=== PATIENT | female | born 1990 | race Caucasian/White ===

== ENCOUNTER 2019-05-08 00:39 | Outpatient (CLI) | payer OTHER, SELFPAY ==
--- NOTE | 2019-05-08 10:57 | DI.US_ITS ---
SYMPTOMS/DIAGNOSIS: TO FOLLOW RT BREAST MASS, N63.10 RIGHT BREAST ULTRASOUND: Right breast ultrasound was performed and is compared with previous ultrasound of 08/26/17. The previous examination showed two mildly lobulated right breast masses which were of intermediate echogenicity, the larger measured 21 x 21 x 12 mm and the smaller measured 9 4 x 6 mm. On today's examination the larger which is in the 10:00 o'clock position 3 cm from the nipple measures 34 x 17 x 30 mm and the previously noted lesion also in the 10:00 o'clock position measures 8 x 4 x 7 mm and is unchanged from the previous exam. There is a new 6 mm in diameter similar appearing solid nodule also in the 10:00 o'clock position. This has well circumscribed margins, as do the other lesions. CONCLUSION: Interval increase in size of the largest right breast lesion, previously thought to have appearance consistent with fibroadenoma. Apart from the increase in size there has been no significant interval change in appearance of the lesion.
== END 2019-05-08 00:59 ==
PROVIDERS: PCP Family Medicine; Visit Provider Nurse Practitioner Family
DX: N63.11 Unspecified lump in the right breast, upper outer quadrant (principal); D24.1 Benign neoplasm of right breast
CPT/HCPCS: 76642

== ENCOUNTER 2019-10-05 15:50 | Outpatient (REF) | payer OTHER, SELFPAY ==
--- NOTE | 2019-10-05 13:30 | PAPFT_PTH ---
PATIENT: Ruth Garcia LOC: [facility] U#:[id number] AGE/SX: 29/F ROOM: RE10/05/[address]: CARIDAD Reddy : 1990 BED: DIS: 10/05/2019 SPEC #: [id number] RECD: 10/05/19 17:10 STATUS: MARCI RERani #: [id number] FABIO: 10/05/19 13:[address]: Flori Doimnguez DEPT: [facility] Cytology RECD BY: Lelo Morejon ENTERED: 10/05/19 17:10 SP TYPE: PAPFT OTHR DR: Soo Kaur Tissues: 1 - CX/ENDOCX FOR PAP SMEARS Procedures: PAP THIN PREP/UVM Screening HPV DNA PROBE Comments: [id number]
== END 2019-10-05 16:10 ==
LOC: LBN 15:50
PROVIDERS: PCP Family Medicine; Visit Provider Nurse Practitioner Family
DX: Z12.4 Encounter for screening for malignant neoplasm of cervix (principal); Z11.51 Encounter for screening for human papillomavirus (HPV)
CPT/HCPCS: 88142; 87624

== ENCOUNTER 2020-04-29 06:21 | Day surgery (SDC) | payer OTHER, SELFPAY ==
[2020-04-29 06:33] VITALS: BP 115/73; PULSE 73; RESP 18; TEMP 36.9; O2SAT 100
[2020-04-29 06:51] LABS: HCT 39.4 % (36.0-46.0); HGB 12.8 g/dL (11.2-15.7); MCH 28.3 pg (27.0-33.0); MCHC 32.5 % (32.0-36.0); MPV 9.9 fL (8.0-11.0); Platelet Count 302 10^3/uL (130-400); RBC 4.53 10^6/uL (3.93-5.22); RDW 12.7 % (11.7-14.6); RDW-SD 40.6 fL; WBC 6.11 10^3/uL (4.4-10.8)
[2020-04-29] MEDS: Lactated Ringers 1,000 ML 125 ML IV (07:06)
[2020-04-29] MEDS: Bupivacaine 0.25% Pres-Free 30 ML VIAL (07:50)
--- NOTE | 2020-04-29 07:50 | POCSPONT_PTH ---
PATIENT: Ruth Garcia LOC: [facility] U#:[id number] AGE/SX: 29/F ROOM: RE04/29/[address]: Edita Emerson : 1990 BED: DIS: 04/29/2020 SPEC #: [id number] RECD: 04/29/20 12:45 STATUS: ROCKZeina REQ #: [id number] FABIO: 04/29/20 07:[address]: Edita Emerson DEPT: Surgical Specimen RECD BY: Lelo Morejon ENTERED: 04/29/20 12:46 SP TYPE: POCSPONT TAMARA DR: Soo Kaur Tissues: 1 - ,SPONTANEOUS CHROMOSOME ANALYSIS PROFILE Procedures: GROSS AND MICRO LEVEL 4 IMMUNOPEROXIDASE STAIN CHROMOSOME ANALYSIS 15-20 CELLS CHROMOSOME ANALYSIS TISSUE CULTURE Comments: [id number] (CYTOGENETICS - [id number])
--- NOTE | 2020-04-29 08:05 | W.PM.DSUDISC ---
Discharge Plan Disposition Patient Disposition: HOME Condition: Fair Discharge Details Reason For Visit: rishabh. Attending Provider: Edita Emerson Primary Care Provider: Soo Kaur Home Meds and New Rx's Prescriptions: No Action cephalexin [Keflex] 500 mg capsule 500 mg PO BID RF: 0 PNV cmb#95-ferrous fumarate-FA [] 1 EACH tablet 1 ea PO DAILY RF: 0 levothyroxine [Synthroid] 25 mcg tablet 50 mcg PO DAILY RF: 0 Discharge Instructions Additional Instructions: 05/16/20 @ 10:[address] Emerson to review pathology results. Stand Alone Forms: [facility] Post Suction D+C Activity:: Activity as Tolerated Diet:: As Tolerated DS: Diagnosis Discharge Diagnosis (1) Missed : Status: Acute
[2020-04-29 08:37] VITALS: BP 117/74; PULSE 53; RESP 16; TEMP 36.2; O2SAT 100
--- NOTE | 2020-04-29 08:46 | W.PM.OP ---
Date of service: 04/29/20 Time of Service: 08:46 Operative Note Operative Note DATE OF PROCEDURE: 04/29/20 PRE-OP DIAGNOSIS: Missed at 6 weeks 4 days estimated gestational age POST-OP DIAGNOSIS: same PROCEDURE: Cervical dilatation and suction evacuation of uterine contents SURGEON: Edita Emerson ANESTHESIA: MAC ESTIMATED BLOOD LOSS: 5 PATHOLOGY: other (Gross pathology and chromosome analysis on process of conception) COMPLICATIONS: None Patient was transported to: same day Patient's condition: stable Indications: 29 due to P0 female with a documented embryonic demise at the time of a OB ultrasound on 02/26/2020 who requested definitive therapy and declined expectant management for missed AB. Findings: Uterus small mobile sounded to 6 cm. Small amount of tissue obtained. Procedure Description: Patient was taken to the operating room where she was placed in the dorsal supine position and monitored anesthesia care was administered without difficulty. She was then placed in the dorsolithotomy position in yellowfin stirrups prepped and draped in the usual sterile fashion. Surgical timeout was performed and SCDs were in place. [place] speculum was placed in the vagina and the anterior lip of the cervix was infiltrated with 1 cc of quarter percent Marcaine with out epinephrine and grasped with a single-tooth tenaculum. A paracervical block was performed at the 4 and 8:00 cervical vaginal interface respectively using quarter percent Marcaine without epinephrine. The cervix was sequentially dilated to a maximum of 17 Colin and a 7 mm curved suction cannula was placed into the uterus attached to suction and all 4 quadrants of the uterine cavity were sequentially suction curetted with small amount of proximal of conception returned. Suction cannula was removed a gentle curettage of the uterus was performed with a banjo curette with minimal tissue returned. Final insertion and suction of the uterine cavity was performed no tissue was returned. Instruments were removed with the patient's vagina tenaculum site was noted be hemostatic. She is placed in the dorsal supine position awakened from anesthesia and transported recovery area in stable condition all sponge lap needle counts were correct x2
== END 2020-04-29 09:05 | disposition home or self-care (01) ==
PROVIDERS: PCP Family Medicine; Visit Provider Obstetrics & Gynecology Gynecology
PROC: (CPT 59841; principal; 2020-04-29 07:30)
DX: O02.1 Missed abortion (principal)
CPT/HCPCS: 59820; 36415; 85027; 86850; 86900; 86901; 88305; 88230; 88233; 88262; 88361; J0131; J1885; J2001; J2250; J2405; J2704

== ENCOUNTER 2020-06-22 03:00 | Outpatient (CLI) | payer OTHER, SELFPAY ==
--- NOTE | 2020-06-22 06:45 | DI.US_ITS ---
EXAM: US SONOHYSTEROGRAM CLINICAL HISTORY: hx of 2 miscarriage,ASSESS UTERINE CAVITY FOR FILLING DEFECT,OO2.1,003.9. TECHNIQUE: Ultrasound was provided for Dr. Emerson during the performance of a sonohysterogram, us ing standard protocol. COMPARISON: CT ABD PELVIS WO CONTRAST from 01/21/2017 FINDINGS: UTERUS: Position: Anteverted. Size: 7.5 x 3.5 x 5 cm Endometrium: 9 millimeters. No polyp or other filling defect is seen. Myometrium: Unremarkable. Cervix: Small nabothian cyst. OVARIES: Right: 3.7 x 2.1 x 1.7 cm Cyst or mass: None. Left: 3.1 x 2.9 x 2.6 cm Cyst or mass: None. DOPPLER: Color: Symmetric and uniform flow to both ovaries. No hyperemia. CUL-DE-SAC: Free fluid: None. IMPRESSION: 1. Sonohysterogram was performed by Dr. Emerson. 2. Normal-appearing uterus with endometrial stripe within normal limits. 3. Unremarkable bilateral ovaries. DATA REPOSITORY:
== END 2020-06-22 03:20 ==
PROVIDERS: PCP Family Medicine; Visit Provider Obstetrics & Gynecology Gynecology
DX: Z87.59 Personal history of other complications of pregnancy, childbirth and the puerperium (principal); O02.1 Missed abortion; O03.9 Complete or unspecified spontaneous abortion without complication
CPT/HCPCS: 76831

== ENCOUNTER 2021-01-03 02:26 | Outpatient (CLI) | payer OTHER, SELFPAY ==
--- NOTE | 2021-01-03 | DI.US_ITS ---
EXAM: US OB 2-3 TRIMESTER W MOD CLINICAL HISTORY: HIGH RISK,O09.91. TECHNIQUE: Transabdominal obstetrical ultrasound performed. COMPARISON: No exams were available for comparison FINDINGS: Transabdominal obstetrical ultrasound performed. FINDINGS: Number of fetuses: One. position: Varied throughout the examination. heart rate: 144 bpm. Placental location: Anterior no evidence of previa. Amniotic fluid index: Amount of fluid is within normal limits. ANATOMICAL SURVEY: Neither the four-chamber heart nor the ventricular outflow tracts were visua lized sonographically. The palate was not seen sonographically. The bowel is mildly hyperechoic but less than the bone. There is a 2.7 mm left choroid plexus cyst. Otherwise, the anatomic surv ey is unremarkable. BIOMETRIC DATA: BPD: 4.9cm consistent with 20 weeks 6 days. HC: 18.2cm consistent with 20 weeks 4 days. AC: 14.9cm consistent with 20 weeks 1 day. FL: 3.4cm consistent with 20 weeks 3 days. Cisterna Magna: 2.6 mm Cerebellum: 1.98 cm EFW: 350 grms 92% Composite Age: 20 weeks 4 days EDC by US: 05/19/2021 Heart Rate: 144BPM IMPRESSION: 1. Single live intrauterine gestation as above. 2. Nonvisualization of the four-chamber heart, right and left ventricular outflow tracts and palate. The patient will return on 01/11/2021 in order to complete the survey. bowel will be re- evaluated at that time. 3. 2.7 mm left choroid plexus cyst. Follow-up is recommended. DATA REPOSITORY:
== END 2021-01-03 02:46 ==
PROVIDERS: PCP Family Medicine; Visit Provider Family Medicine
DX: O09.292 Supervision of pregnancy with other poor reproductive or obstetric history, second trimester (principal); Z3A.20 20 weeks gestation of pregnancy
CPT/HCPCS: 76805

== ENCOUNTER 2021-05-17 01:47 | Outpatient (CLI) | payer OTHER, SELFPAY ==
--- NOTE | 2021-05-17 09:00 | DI.US_ITS ---
Exam(s) US OB NALDO WEIGHT EXAM: US OB NALDO WEIGHT CLINICAL HISTORY: large for dates. ? over 5000gms, Z3A.01, Z34.93. TECHNIQUE: Transabdominal obstetrical ultrasound was performed. COMPARISON: US US OB F/U FACIAL/LVOT/RVOT from 01/12/2021 FINDINGS: There is a single viable intrauterine gestation with cardiac activity identified-144 bpm The fetus is presently in cephalic position . Amniotic fluid: There is a normal amount of amniotic fluid with an NALDO of 19.9cm. Placental location: The placenta is anterior grade 2,with no evidence of placenta previa. Dating parameters place this at approximately 42 weeks gestational age, implying POST DATES . (05/03/2021) BPD measures 42 WEEKS HC measures OVER 42 WEEKS AC measures 40 WEEKS FL measures OVER 42 WEEKS Estimated weight is 4638 gm-10 POUNDS, 4 OUNCES IMPRESSION:: Viable TERM/POSTDATES gestation, as described above. NORMAL AMOUNT OF AMNIOTIC FLUID. DATA REPOSITORY:
--- NOTE | 2021-05-25 10:53 | W.PM.OBHPL1 ---
OB-HPI Labor/Delivery History of Present Illness UHGO Calculator Estimated Delivery Date Method Current WG Current Estimate 05/27/21 LMP (Certain) 39w 5d Other Estimates 05/27/21 Ultrasound #1 39w 5d PFSH Medical History (Updated 05/16/21 @ 10:45 by Edita Emerson MD) History of frequent urinary tract infections (10/22/16) History of kidney stones (01/14/17) History of miscarriage 04/2020. Normal female karyotype on [facility]C specimen[facility] Perform lupus anticoagulant and anticardiolipin antibodies. Sonohysterogram to evaluate uterine cavity to be performed at [facility] Hypothyroidism, unspecified (10/28/17) Interstitial cystitis Missed 01/2020. ~7w EGA. D&C at 10w 04/27/20. Dx at 7w2d. Procedure 04/29/20. POC: Nl chromosome analysis. Surgical History Breast fibroadenoma Removed 05/27/2019 Dr Mariano Reece Hx of dilation and curettage 01/28/20 Family History Grandmother Thyroid disorder paternal Grandmother Thyroid disorder maternal Maternal Aunt Thyroid disorder paternal Maternal Aunt Thyroid disorder paternal Paternal Grandmother Breast cancer PGM at age 92 with Dx of Breast, Ovarian and Uterine cancer Ovarian cancer Uterine cancer Social History (Updated 04/28/20 @ 14:07 by Edita Emerson MD) Smoking/Tobacco Use Status: Never Smoking risk assessment performed?: Yes Alcohol Intake: never Drug use: Never Substance use type: does not use Household members: spouse and other Details: H-Jabari Number of Children: 0 Education Level: master's degree current occupation: [employer] Sexually active: Yes Do you feel safe at home: Yes Do you feel safe in your relationship?: Yes Female Reproductive History Menstrual control method: condoms History History 3 Para 2 Hx # Term Pregnancies Multiple births Hx # Pregnancies Ectopic pregnancies AB induced Hx Number of Living Children AB spontaneous 2 Meds Allergies and Home Medications Allergies Allergy/AdvReac Type Severity Reaction Status Date / Time pineapple AdvReac Intermediate RASH Verified 10/24/20 08:05 Home Medications Medication Instructions Recorded Confirmed Type PNV cmb#95-ferrous fumarate-FA 1 ea PO DAILY 10/12/13 05/25/21 History [ Vitamins Tablet] levothyroxine 25 mcg tablet 75 mcg PO DAILY tab 09/29/20 05/25/21 History levothyroxine [Synthroid] 75 mcg PO DAILY 05/25/21 05/25/21 History Exam Detailed Labor and Delivery Exam De Leon Score: Cervical Points Exam 0 1 2 3 Dilation Closed 1-2cm 3-4 cm 5-6cm Effacement 0-30% 40-50% 60-70% 80% Consistency Firm Medium Soft Station -3 -2 -1,0 +1,+2 Position Posterior Mid Anterior
== END 2021-05-17 02:07 ==
PROVIDERS: PCP Family Medicine; Visit Provider Obstetrics & Gynecology Gynecology
DX: Z34.93 Encounter for supervision of normal pregnancy, unspecified, third trimester (principal); Z3A.42 42 weeks gestation of pregnancy
CPT/HCPCS: 76816

== ENCOUNTER 2021-05-25 10:00 | Inpatient (IN) | payer OTHER, SELFPAY ==
[2021-05-25] VITALS (9 sets, daily range): BP systolic 103–132; BP diastolic 60–80; PULSE 78–95; RESP 14–18; TEMP 36.6–36.8
[2021-05-25] MEDS: miSOPROStol 25 MCG TAB (11:19)
[2021-05-25 13:05] LABS: Source Nasal/Nares
[2021-05-25 13:06] LABS: HCT 39.1 % (36.0-46.0); MCH 29.7 pg (27.0-33.0); MCHC 33.2 % (32.0-36.0); MCV 89.3 fL (80-95); MPV 10.4 fL (8.0-11.0); Platelet Count 198 10^3/uL (130-400); RBC 4.38 10^6/uL (3.93-5.22); RDW 13.8 % (11.7-14.6)
[2021-05-25 14:44] LABS: COVID-19 PCR Negative (Negative)
--- NOTE | 2021-05-25 16:11 | HPE_ITS ---
Date of service: 05/25/21 Time of Service: 11:00 Assessment and Plan Assessment and plan (1) Macrosomia: Status: Acute Assessment and plan: 30 yo at 39 5/7 weeks here for IOL for suspected macrosomia. Overall doing well with cat 1 FHT. Cervix extremely posterior and difficult to reach, unable to visualize with speculum. Suspected Bishops score of 0. - At risk for PPH due to expected prolonged IOL and uterine atony due to macrosomia and borderline polyhydramnios. - At risk for SD due to suspected macrosomia and maternal weight gain >50lbs. Of note, GDM testing negative. Plan: - misoprostol 25mcg vaginal given now, plan for total of 4 doses - attempted cook balloon placement but cervix too posterior to do successfully, could try again after one dose of miso depending on exam - anticipate pitocin early tomorrow morning (2) Encounter for induction of labor: Status: Acute Assessment and plan: As above (3) Hypothyroidism, unspecified: Status: Acute Assessment and plan: Continue home levothyroxine Qualifiers: Hypothyroidism type: other Qualified Code(s): E03.8 - Other specified hypothyroidism OB-HPI Labor/Delivery History of Present Illness Reason for Visit: Labor Induction Chief Complaint: Scheduled Induction of Labor Indication for Induction: Macrosomia. HUGO Calculator Estimated Delivery Date Method Current WG Current Estimate 05/27/21 LMP (Certain) 39w 5d Other Estimates 05/27/21 Ultrasound #1 39w 5d History of Present Narrative: Late entry, patient seen this morning starting at 10:30am. 30 yo , A+, ab neg, RI, GBS neg woman who presents at 39 5/7 weeks for IOL for suspected macrosomia. Also with borderline polyhydramnios on her last US with single deepest pocket of >9.3 but NALDO was 19.9cm. Medical history notable for hypothyroidism, TSH in February wnl. history notable as above for suspected macrosomia with estimated weight of 4638 gm-10 POUNDS, 4 OUNCES on 05/17/21, as well as over 50lb weight gain. Reports feeling well. No vaginal bleeding or leakage of fluid, good movement, does have occasional mild contractions. Had headaches earlier this week but none the last couple days. Has had swelling of hands and feet for last few weeks, worse today. No epigastric discomfort, vision changes. Review of Systems All systems reviewed & are unremarkable except as noted in HPI and below PFS Medical History (Updated 05/25/21 @ 16:35 by India Camacho) History of frequent urinary tract infections (10/22/16) History of kidney stones (01/14/17) History of miscarriage 04/2020. Normal female karyotype on D&C specimen. 05/2020 [facility] consult: Perform lupus anticoagulant and anticardiolipin antibodies. Sonohysterogram to evaluate uterine cavity to be performed at [facility] Hypothyroidism, unspecified (10/28/17) Interstitial cystitis Missed 01/2020. ~7w EGA. D&C at 10w 04/27/20. Dx at 7w2d. Procedure 04/29/20. POC: Nl chromosome analysis. Surgical History Breast fibroadenoma Removed 05/27/2019 Dr Mariano Reece Hx of dilation and curettage 01/28/20 Family History Grandmother Thyroid disorder paternal Grandmother Thyroid disorder maternal Maternal Aunt Thyroid disorder paternal Maternal Aunt Thyroid disorder paternal Paternal Grandmother Breast cancer PGM at age 92 with Dx of Breast, Ovarian and Uterine cancer Ovarian cancer Uterine cancer Social History (Updated 04/28/20 @ 14:07 by Edita Emerson MD) Smoking/Tobacco Use Status: Never Smoking risk assessment performed?: Yes Alcohol Intake: never Drug use: Never Substance use type: does not use Household members: spouse and other Details: H-Jabari Number of Children: 0 Education Level: master's degree 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 [employer] Sexually active: Yes Do you feel safe at home: Yes Do you feel safe in your relationship?: Yes Female Reproductive History Menstrual control method: condoms History History 3 Para 0 Hx # Term Pregnancies Multiple births Hx # Pregnancies Ectopic pregnancies AB induced Hx Number of Living Children AB spontaneous 2 Meds Allergies and Home Medications Allergies Allergy/AdvReac Type Severity Reaction Status Date / Time pineapple AdvReac Intermediate RASH Verified 05/25/21 16:02 Home Medications Medication Instructions Recorded Confirmed Type PNV cmb#95-ferrous fumarate-FA 1 ea PO DAILY 10/12/13 05/25/21 History [ Vitamins Tablet] levothyroxine [Synthroid] 75 mcg PO DAILY 05/25/21 05/25/21 History Exam Physical Exam Vital signs: Temp Pulse Resp BP 36.7 C 92 H 14 123/68 05/25/21 13:04 05/25/21 15:11 05/25/21 11:27 05/25/21 15:11 Constitutional Constitutional: no acute distress Detailed Labor and Delivery Exam Dilation: 0 Effacement (%): 0 station: -4 Cervix position: posterior Gardner Score: Cervical Points Exam 0 1 2 3 Dilation Closed 1-2cm 3-4 cm 5-6cm Effacement 0-30% 40-50% 60-70% 80% Consistency Firm Medium Soft Station -3 -2 -1,0 +1,+2 Position Posterior Mid Anterior GARDNER Score(Cervical Ripeness Score): 0 Amniotic Membrane Status: Intact Contraction Frequency(min): none Fetus A Heart Rate Baseline: 135 Monitor Accelerations: 15 X 15 Monitor Decelerations: None Variability: Moderate (6-25 BPM) Presentation: Vertex Categories: Category I Est. Weight: 10 pounds HEENT Exam HEENT Exam: Normal Respiratory Exam Respiratory Exam: Normal Cardiovascular Exam Cardiovascular Exam: Normal Abdominal Exam Abdominal Exam: Normal Extremities Exam Extremities Exam: Normal (mild edema) Neurological Exam Neurological Exam: Normal Psychiatric Exam Psychiatric Exam: Normal Results Results Group Beta Strep: Negative Blood Type: A+ Rubella Status: Immune Varicella Immunity: Not Tested Risk Assessment Risk for Shoulder Dystocia 40 Weeks: POSTIVE FOR: EFW> 4500 gms Increased Risk?: Yes Risk for Pre-Eclampsia Daily Dose ASA Indicated: No Yes, if 2 or more: POSITIVE FOR: Nulliparity and BMI>30 Risks Reviewed Risks Reviewed Upon Admission: Yes
[2021-05-25] MEDS: miSOPROStol 25 MCG TAB VG (16:54)
--- NOTE | 2021-05-25 17:08 | W.PM.OBNL1 ---
Date of service: 05/25/21 Time of Service: 17:08 Informed Consent Informed Consent: Induction of Labor and Risk,Benefits,Alternatives Discussed Pelvic Exam Dilation: 1 Effacement (%): 50 station: -3 Cervix Position: posterior Consistency: soft Vaginal Exam Presentation: Vertex Contractions Monitor Mode: External Contraction Frequency(min): 2-3 Contraction Duration(sec): 40s Intensity: Mild Fetus A Monitor: External (US) Heart Rate Baseline: 135 Presentation: Vertex Variability: Moderate (6-25 BPM) Categories: Category I Accelerations: 15 X 15 Decelerations: None Assessment and Plan Assessment and plan (1) Encounter for induction of labor: Status: Acute Assessment and plan: [place] irregularly and mildly but consistently after one dose of miso. FHT cat 1. Has made some progress. - additional dose of miso 25mcg vaginally given - plan for two additional doses of miso overnight, pitocin early in the morning (2) Macrosomia: Status: Acute (3) Hypothyroidism, unspecified: Status: Acute Assessment and plan: Continue home levothyroxine Qualifiers: Hypothyroidism type: other Qualified Code(s): E03.8 - Other specified hypothyroidism Objective Temp Pulse Resp BP 36.7 C 92 H 14 123/68 05/25/21 13:04 05/25/21 15:11 05/25/21 11:27 05/25/21 15:11 Laboratory Results WBC 9.70 10^3/uL (4.4-10.8) 05/25/21 12:55 RBC 4.38 10^6/uL (3.93-5.22) 05/25/21 12:55 Hgb 13.0 g/dL (11.2-15.7) 05/25/21 12:55 Hct 39.1 % (36.0-46.0) 05/25/21 12:55 MCV 89.3 fL (80-95) 05/25/21 12:55 MCH 29.7 pg (27.0-33.0) 05/25/21 12:55 MCHC 33.2 % (32.0-36.0) 05/25/21 12:55 RDW 13.8 % (11.7-14.6) 05/25/21 12:55 Plt Count 198 10^3/uL (130-400) 05/25/21 12:55 MPV 10.4 fL (8.0-11.0) 05/25/21 12:55 COVID-19 Source Nasal/Nares 05/25/21 11:00 SARS-CoV-2 (PCR) Negative (Negative) 05/25/21 11:00 Patient ABO/Rh A Positive 05/25/21 12:55 Antibody Screen NEGATIVE 05/25/21 12:55 Subjective Interval history since last seen: Feeling contractions but mild, speaking through them easily. Has been up and walking. In good spirits. Results Hemoglobin/Hematocrit: Hgb 13.0 g/dL (11.2-15.7) 05/25/21 12:55 Hct 39.1 % (36.0-46.0) 05/25/21 12:55
[2021-05-25] MEDS: Zolpidem 5 MG TAB 10 MG PO (21:36)
[2021-05-25] MEDS: Lactated Ringers 1,000 ML 200 ML IV (22:00)
[2021-05-26] VITALS (28 sets, daily range): BP systolic 115–126; BP diastolic 62–76; PULSE 66–101; RESP 16; TEMP 36.6–36.9; O2SAT 100; BMI 44.9
--- NOTE | 2021-05-26 08:15 | W.PM.OBNL1 ---
Date of service: 05/26/21 Time of Service: 08:15 Informed Consent Informed Consent: Induction of Labor and Risk,Benefits,Alternatives Discussed Pelvic Exam Dilation: 2 Effacement (%): 50 station: -3 Cervix Position: mid Consistency: medium Vaginal Exam Presentation: Cephalic Contractions Monitor Mode: External Contraction Frequency(min): 3 Contraction Duration(sec): 60 Intensity: Mild Fetus A Monitor: External (US) Heart Rate Baseline: 145 Presentation: Cephalic Variability: Moderate (6-25 BPM) Categories: Category I FHR Rhythm: Regular Characteristics: Normal Accelerations: 15 X 15 Decelerations: None Amniotic Membrane Status: Intact Assessment and Plan Assessment and plan (1) Macrosomia: Status: Acute (2) Encounter for induction of labor: Status: Acute (3) : Status: Acute Assessment and plan: Ruth is doing well after 2 doses of Miso. She did have a few hours of tachysystole last night that responded to fluid bolus. No additional doses were given. Her SVE is now 2/50/-3, some change. We will start pitocin now to continue the induction. Discussed pain management and she is open to epidural if necessary. FHT category 1, vitals stable. Qualifiers: Weeks of gestation: less than 8 weeks Qualified Code(s): Z3A.01 - Less than 8 weeks gestation of Objective Temp Pulse Resp BP 36.7 C 75 16 120/75 05/26/21 07:16 05/26/21 07:16 05/26/21 07:16 05/26/21 07:16 Laboratory Results WBC 9.70 10^3/uL (4.4-10.8) 05/25/21 12:55 RBC 4.38 10^6/uL (3.93-5.22) 05/25/21 12:55 Hgb 13.0 g/dL (11.2-15.7) 05/25/21 12:55 Hct 39.1 % (36.0-46.0) 05/25/21 12:55 MCV 89.3 fL (80-95) 05/25/21 12:55 MCH 29.7 pg (27.0-33.0) 05/25/21 12:55 MCHC 33.2 % (32.0-36.0) 05/25/21 12:55 RDW 13.8 % (11.7-14.6) 05/25/21 12:55 Plt Count 198 10^3/uL (130-400) 05/25/21 12:55 MPV 10.4 fL (8.0-11.0) 05/25/21 12:55 COVID-19 Source Nasal/Nares 05/25/21 11:00 SARS-CoV-2 (PCR) Negative (Negative) 05/25/21 11:00 Patient ABO/Rh A Positive 05/25/21 12:55 Antibody Screen NEGATIVE 05/25/21 12:55 Subjective Interval history since last seen: Ruth took ambien last night to rest which she did not like. Very nauseated. however she is feeling well now, feeling contractions minimally. No new complaints Results Hemoglobin/Hematocrit: Hgb 13.0 g/dL (11.2-15.7) 05/25/21 12:55 Hct 39.1 % (36.0-46.0) 05/25/21 12:55
[2021-05-26] MEDS: Lactated Ringers 1,000 ML 125 ML IV ×3 (08:35→23:33)
[2021-05-26] MEDS: Oxytocin/Normal Saline 30 UNIT/500 ML BAG 2 UNITS IV (08:35)
[2021-05-26] MEDS: Normal Saline Flush 10 ML SYR IVP (08:36)
--- NOTE | 2021-05-26 16:29 | PGE_ITS ---
Date of service: 05/26/21 Time of Service: 16:30 Informed Consent Informed Consent: Induction of Labor and Risk,Benefits,Alternatives Discussed Pelvic Exam Dilation: 4 Effacement (%): 70 station: -3 Cervix Position: mid Consistency: soft Vaginal Exam Presentation: Cephalic Comments: AROM performed with a large amount of clear fluid Contractions Monitor Mode: External Contraction Frequency(min): 1.5-3min Contraction Duration(sec): 45 Intensity: Mild/Moderate Fetus A Monitor: External (US) Heart Rate Baseline: 135 Presentation: Cephalic Variability: Moderate (6-25 BPM) Categories: Category I FHR Rhythm: Regular Characteristics: Normal Accelerations: 15 X 15 Decelerations: None Amniotic Membrane Status: Ruptured Assessment and Plan Assessment and plan (1) : Status: Acute Assessment and plan: Ruth is progressing slowly, now at 4/70/-3, AROM perfomed with copious clear fluid. Managing pain well. Pitocin at 12u. Co ntinue current management. Qualifiers: Weeks of gestation: less than 8 weeks Qualified Code(s): Z3A.01 - Less than 8 weeks gestation of (2) Macrosomia: Status: Acute Objective Temp Pulse Resp BP 36.6 C 66 16 121/72 05/26/21 15:50 05/26/21 15:52 05/26/21 15:50 05/26/21 15:52 Laboratory Results WBC 9.70 10^3/uL (4.4-10.8) 05/25/21 12:55 RBC 4.38 10^6/uL (3.93-5.22) 05/25/21 12:55 Hgb 13.0 g/dL (11.2-15.7) 05/25/21 12:55 Hct 39.1 % (36.0-46.0) 05/25/21 12:55 MCV 89.3 fL (80-95) 05/25/21 12:55 MCH 29.7 pg (27.0-33.0) 05/25/21 12:55 MCHC 33.2 % (32.0-36.0) 05/25/21 12:55 RDW 13.8 % (11.7-14.6) 05/25/21 12:55 Plt Count 198 10^3/uL (130-400) 05/25/21 12:55 MPV 10.4 fL (8.0-11.0) 05/25/21 12:55 COVID-19 Source Nasal/Nares 05/25/21 11:00 SARS-CoV-2 (PCR) Negative (Negative) 05/25/21 11:00 Patient ABO/Rh A Positive 05/25/21 12:55 Antibody Screen NEGATIVE 05/25/21 12:55 Subjective Interval history since last seen: Ruth is doing well, managing pain beautifully. [place] some fluid dripping, and asked to be checked. Results Hemoglobin/Hematocrit: Hgb 13.0 g/dL (11.2-15.7) 05/25/21 12:55 Hct 39.1 % (36.0-46.0) 05/25/21 12:55
--- NOTE | 2021-05-26 17:29 | ANES.PREOP_ITS ---
General Info Date of Service Date Performed: 05/26/21 Height: 5 ft 1.81 in Weight: 110.677 kg Body Mass Index (BMI): 44.9 Meds Allergies and Home Medications Allergies Allergy/AdvReac Type Severity Reaction Status Date / Time pineapple AdvReac Intermediate RASH Verified 05/25/21 16:02 Home Medication Medication Instructions Recorded PNV cmb#95-ferrous fumarate-FA 1 ea PO DAILY 10/12/13 [ Vitamins Tablet] levothyroxine [Synthroid] 75 mcg PO DAILY 05/25/21 Current Visit Medications: Current Medications Generic Name Dose Route Start Last Admin Trade Name Freq PRN Reason Stop Dose Admin Fentanyl/Ropivacaine 200 ml 05/26/21 17:15 Fentanyl/Ropivacaine 2 Mcg/Ml And 0.1% 200 Ml Cadd Cassette EP DIRECTED MONICA Ringer's Solution 1,000 mls @ 200 mls/hr 05/25/21 12:00 05/26/21 15:34 IV Infused INFUSION MONICA Infusion Ringer's Solution 1,000 mls @ 125 mls/hr 05/26/21 08:15 05/26/21 16:15 IV 125 mls/hr INFUSION MONICA Administration Sodium Chloride 500 mls @ 0 mls/hr 05/26/21 08:14 Saline 500ml Bag IV PRN PRN As Directed Oxytocin/Sodium Chloride 30 unit in 500 mls @ 2 mls/hr 05/26/21 08:15 05/26/21 12:25 Pitocin/Normal Saline IV 12 milliunits/min INFUSION MONICA 12 mls/hr Titration Protocol 2 MILLIUNITS/MIN IV Miscellaneous Supplies 1 each 05/25/21 12:00 Iv Access IV DIRECTED MONICA IV Miscellaneous Supplies 1 each 05/26/21 08:15 Iv Access IV DIRECTED MONICA Sodium Chloride 0 ml 05/25/21 11:54 Normal Saline Flush 10 Ml Syr IVP PRN PRN Sodium Chloride 0 ml 05/26/21 08:14 05/26/21 08:36 Normal Saline Flush 10 Ml Syr IVP 10 ml PRN PRN Administration Terbutaline Sulfate 0.25 mg 05/25/21 11:54 Terbutaline 1 Mg/Ml Vial SC [facility]N [facility]N [facility] Active Problems Active Problems: Problem Status Onset Code Macrosomia P08.0 Encounter for induction of labor Z34.90 Hypothyroidism, unspecified 10/28/17 E03.9 Encounter for supervision of normal , unspecified, third trimester Z34.93 Large for gestational age fetus Z34.90 History of miscarriage Z87.59 Missed O02.1 History of kidney stones 01/14/17 Z87.442 History of frequent urinary tract infections 10/22/16 Z87.440 Medical History Medical History (Updated 05/25/21 @ 16:35 by India Camacho) History of frequent urinary tract infections (10/22/16) History of kidney stones (01/14/17) History of miscarriage 04/2020. Normal female karyotype on D&C specimen. 05/2020 [facility] [place] MFM consult: Perform lupus anticoagulant and anticardiolipin antibodies. Sonohysterogram to evaluate uterine cavity to be performed at [facility] Hypothyroidism, unspecified (10/28/17) Interstitial cystitis Missed 01/2020. ~7w EGA. D&C at 10w 04/27/20. Dx at 7w2d. Procedure 04/29/20. POC: Nl chromosome analysis. Surgical History Surgical History Breast fibroadenoma Removed 05/27/2019 Dr Mariano Reece Hx of dilation and curettage 01/28/20 Tobacco Smoking/Tobacco Use Status: Never Alcohol Alcohol Intake: never Substance Use Substance use: Never Substance use type: does not use Prental History History 3 Para 0 Hx # Term Pregnancies Multiple births Hx # Pregnancies Ectopic pregnancies AB induced Hx Number of Living Children AB spontaneous 2 Vital Signs and Lab Results Vital Signs Most Recent Vital Signs in EMR: Most Recent Vital Signs Temp Pulse Resp BP 36.6 C 66 16 121/72 05/26/21 15:50 05/26/21 15:52 05/26/21 15:50 05/26/21 15:52 Lab Results Result Diagrams: 05/25/21 12:55 Blood Type / Crossmatch: Patient ABO/Rh A Positive 05/25/21 12:55 05/25/21 Antibody Screen NEGATIVE 05/25/21 12:55 05/25/21 Complete Blood Count: White Blood Count 9.70 10^3/uL (4.4-10.8) 05/25/21 12:55 05/25/21 Red Blood Count 4.38 10^6/uL (3.93-5.22) 05/25/21 12:55 05/25/21 Hemoglobin 13.0 g/dL (11.2-15.7) 05/25/21 12:55 05/25/21 Hematocrit 39.1 % (36.0-46.0) 05/25/21 12:55 05/25/21 Platelet Count 198 10^3/uL (130-400) 05/25/21 12:55 05/25/21 Complete Metabolic Panel: No Data to Display Liver Function Panel: No Data to Display Coagulation Panel: No Data to Display Cardiac Panel: No Data to Display Arterial Blood Gas: No Data to Display Venous Blood Gas: No Data to Display Pancreas Panel: No Data to Display Thyroid Panel: No Data to Display Infectious Disease: Coronavirus (COVID-19)(PCR) Negative (Negative) 05/25/21 11:00 05/25/21 Coronavirus 2019 Source Nasal/Nares 05/25/21 11:00 05/25/21 Blood Cultures: No Data to Display Toxicology Panel: No Data to Display Panel: No Data to Display Anesthesia Assessment and Plan Anesthesia History Personal History: No History of Anesthesia Complications Family History: No Family History of Anesthesia Complications Exercise Tolerance Exercise Tolerance: Metabolic Equivalents>4 Cardiac & Pulmonary Exam Cardiac Exam: Normal S1/S2 Heart Sounds Pulmonary Exam: Clear Bilateral Breath Sounds Airway Exam Known Difficult Airway: No Mallampati Class: 3 Mouth Opening: Normal (> 3cm) Thyromental Distance: Greater than 3 cm Neck Range of Motion: Full ROM Neck Circumference: Normal Teeth Condition: Normal Dentition ASA Classification ASA Score: ASA 2 Emergency Case?: No NPO Status NPO Status: Full Stomach Status Status: Other (preg) Anesthesia Plan Resuscitation Status: Full Code Anesthesia Technique: Epidural Anesthesia Airway Planned: Natural Airway Monitors Used: Standard Monitors Preoperative Comments:: 30 yo with request for labor epidural. No sig medical history, plts good, 2 previous spont AB.
[2021-05-26] MEDS: FentaNYL/ROPIvacaine 2 mcg/ml and 0.1% 200 ML CADD Cassette EP (18:24)
--- NOTE | 2021-05-26 18:24 | W.ANESNEU ---
Epidural/Spinal Catheter Date Performed: 05/26/21 Procedure Start: 17:50 Procedure Stop: 18:10 Requesting Provider: Broderick Kitchen Procedure Location: Obstetrics Reason Performed: Labor Epidural Standard Monitors Applied: ECG, Blood Pressure and SpO2 Patient Position: Sitting Sedation Given (Indicate Dose Given): No Sedation given Patient Mental Status: Awake Sterility: Hand Hygiene, Surgical Cap, Surgical Mask, Sterile Gloves and Sterile Drape/Sheet Procedure Location: L2-L3 Interspace Epidural Needle: Tuohy 17 Guage Needle Length: 3.5 Inch Needle Approach: Midline Epidural Procedure: Skin Prepped, Sterile Drape Placed, 1% Lidocaine to skin and subcutaneous tissue with 25G needle, Tuohy Needle placed and CURRY to Saline Used Catheter Placed?: Catheter Placed Test Dose (Indicate Dose Given): 3ml 1.5% Lidocaine with 1:200K Epinephrine Given and Negative Test Dose Loss of Resistance Depth (cm): 5 Catheter depth at skin (cm): 12 Dressing: Sorbaview Dressing Placed, Mastisol Used and Dressing reinforced with Tape Epidural Provider Bolus (Indicate Dose Given): Total Ropivacaine 0.1% with Fentanyl 2mcg/ml Given from pump (ml) Dose:: 7 mL Additives (Indicate Dose Given ): None Infusion Medication: Medication Infusion Began Medication Infusion: Ropivacaine 0.1% with Fentanyl 2mcg/ml Maintenance Infusion Rate (ml/hour): 12 PCEA Bolus Dose (ml): 5 Block Level: N/A Paresthesia: None Ultrasound: Used to amilcar site Number of Attempts (See previous attempts in note section): 1 Procedure Tolerated: No Complications Procedure Outcome: Successful Performed By: Jason Pino
--- NOTE | 2021-05-26 18:30 | W.PM.OBNL1 ---
Date of service: 05/26/21 Time of Service: 18:30 Informed Consent Informed Consent: Induction of Labor and Risk,Benefits,Alternatives Discussed Pelvic Exam Dilation: 4 Effacement (%): 80 station: -3 Cervix Position: mid Consistency: soft Vaginal Exam Presentation: Cephalic Contractions Monitor Mode: External Contraction Frequency(min): 3-4 Contraction Duration(sec): 60 Intensity: Moderate Fetus A Monitor: External (US) Heart Rate Baseline: 135 Presentation: Cephalic Variability: Moderate (6-25 BPM) Categories: Category I FHR Rhythm: Regular Characteristics: Normal Accelerations: 15 X 15 Decelerations: None Amniotic Membrane Status: Ruptured Assessment and Plan Assessment and plan (1) : Status: Acute Assessment and plan: Ruth is much more comfortable with the epidural in place. Encouraged her to rest now. Not much change in SVE, but hopefully epidural will help her relax. FHT category 1. Contractions are regular. Will increase pitocin as contractions allow. Continue present management. Qualifiers: Weeks of gestation: less than 8 weeks Qualified Code(s): Z3A.01 - Less than 8 weeks gestation of (2) Macrosomia: Status: Acute Objective Temp Pulse Resp BP Pulse Ox 36.6 C 98 H 16 117/63 100 05/26/21 15:50 05/26/21 18:26 05/26/21 15:50 05/26/21 18:23 05/26/21 18:26 Laboratory Results WBC 9.70 10^3/uL (4.4-10.8) 05/25/21 12:55 RBC 4.38 10^6/uL (3.93-5.22) 05/25/21 12:55 Hgb 13.0 g/dL (11.2-15.7) 05/25/21 12:55 Hct 39.1 % (36.0-46.0) 05/25/21 12:55 MCV 89.3 fL (80-95) 05/25/21 12:55 MCH 29.7 pg (27.0-33.0) 05/25/21 12:55 MCHC 33.2 % (32.0-36.0) 05/25/21 12:55 RDW 13.8 % (11.7-14.6) 05/25/21 12:55 Plt Count 198 10^3/uL (130-400) 05/25/21 12:55 MPV 10.4 fL (8.0-11.0) 05/25/21 12:55 COVID-19 Source Nasal/Nares 05/25/21 11:00 SARS-CoV-2 (PCR) Negative (Negative) 05/25/21 11:00 Patient ABO/Rh A Positive 05/25/21 12:55 Antibody Screen NEGATIVE 05/25/21 12:55 Subjective Interval history since last seen: After AROM, contractions became much more intense and she was vomiting. She requested an epidural which is now in place and very effective. Results Hemoglobin/Hematocrit: Hgb 13.0 g/dL (11.2-15.7) 05/25/21 12:55 Hct 39.1 % (36.0-46.0) 05/25/21 12:55
--- NOTE | 2021-05-26 21:25 | W.PM.OBNL1 ---
Date of service: 05/26/21 Time of Service: 21:25 Informed Consent Informed Consent: Induction of Labor and Risk,Benefits,Alternatives Discussed Pelvic Exam Dilation: 5 Effacement (%): 90 station: -3 Cervix Position: anterior Consistency: soft Vaginal Exam Presentation: Cephalic Contractions Monitor Mode: External Contraction Frequency(min): 3-4 Contraction Duration(sec): 60 Intensity: Moderate Fetus A Monitor: External (US) Heart Rate Baseline: 135 Presentation: Cephalic Variability: Moderate (6-25 BPM) Categories: Category I FHR Rhythm: Regular Characteristics: Normal Accelerations: 15 X 15 Decelerations: None Assessment and Plan Assessment and plan (1) : Status: Acute Assessment and plan: Ruth continues to make slow progress. Baby seems slightly asynclitic and I believe OP. Will try Left side with the peanut and other position changes to help him shift positions. Although we are not able to keep FHT on the monitor 100% of the time, he is category one at all times when being monitored. We will continue to increase pitocin from current 20u as tolerated. Qualifiers: Weeks of gestation: less than 8 weeks Qualified Code(s): Z3A.01 - Less than 8 weeks gestation of (2) Macrosomia: Status: Acute Objective Temp Pulse Resp BP Pulse Ox 36.8 C 86 16 126/67 100 05/26/21 21:09 05/26/21 21:05/26/21 15:50 05/26/21 21:05/26/21 18:56 Laboratory Results WBC 9.70 10^3/uL (4.4-10.8) 05/25/21 12:55 RBC 4.38 10^6/uL (3.93-5.22) 05/25/21 12:55 Hgb 13.0 g/dL (11.2-15.7) 05/25/21 12:55 Hct 39.1 % (36.0-46.0) 05/25/21 12:55 MCV 89.3 fL (80-95) 05/25/21 12:55 MCH 29.7 pg (27.0-33.0) 05/25/21 12:55 MCHC 33.2 % (32.0-36.0) 05/25/21 12:55 RDW 13.8 % (11.7-14.6) 05/25/21 12:55 Plt Count 198 10^3/uL (130-400) 05/25/21 12:55 MPV 10.4 fL (8.0-11.0) 05/25/21 12:55 COVID-19 Source Nasal/Nares 05/25/21 11:00 SARS-CoV-2 (PCR) Negative (Negative) 05/25/21 11:00 Patient ABO/Rh A Positive 05/25/21 12:55 Antibody Screen NEGATIVE 05/25/21 12:55 Subjective Interval history since last seen: Doing well, comfortable. Able to stand and walk despite epidural. Results Hemoglobin/Hematocrit: Hgb 13.0 g/dL (11.2-15.7) 05/25/21 12:55 Hct 39.1 % (36.0-46.0) 05/25/21 12:55
[2021-05-27] VITALS (7 sets, daily range): BP systolic 82–128; BP diastolic 44–79; PULSE 74–100; RESP 14–18; TEMP 36.6–37.1; O2SAT 95–100
--- NOTE | 2021-05-27 02:19 | NUR.NOTE ---
Nursing Note: 0210 Pt c/o itching from Novii patch, patch removed at this time for pt comfort.
--- NOTE | 2021-05-27 04:05 | W.PM.OBNL1 ---
Date of service: 05/27/21 Time of Service: 04:06 Informed Consent Informed Consent: Induction of Labor and Risk,Benefits,Alternatives Discussed Pelvic Exam Dilation: 5 Effacement (%): 90 station: -3 Consistency: soft Vaginal Exam Presentation: Cephalic Contractions Monitor Mode: External Contraction Frequency(min): 3-4 Contraction Duration(sec): 60 Intensity: Moderate Fetus A Monitor: External (US) Heart Rate Baseline: 135 Presentation: Cephalic Variability: Moderate (6-25 BPM) Categories: Category II FHR Rhythm: Regular Characteristics: Normal Accelerations: 15 X 15 Decelerations: Late Recurrence: Recurrent Amniotic Membrane Status: Ruptured Assessment Note: Category 2 with recurrent mild late decels for the last hour and a half Assessment and Plan Assessment and plan (1) : Status: Acute Assessment and plan: Labor has stalled. She has had no cervical change for the last 6 hours despite pitocin at 22u. FHT has changed to category 2 with recurrent late decles. Given failure to descend as well as concerns with tracing, I asked Dr Emerson to come evaluate her. We agree that given baby's size, and positioning in the pelvis, vaginal delivery seems unlikely at this point. After discussion with Ruth, we will move to a surgical delivery at this time. Pitocin was discontinued in preparation. Qualifiers: Weeks of gestation: less than 8 weeks Qualified Code(s): Z3A.01 - Less than 8 weeks gestation of (2) Macrosomia: Status: Acute Objective Temp Pulse Resp BP Pulse Ox 37.1 C 98 H 16 127/76 100 05/27/21 03:00 05/27/21 03:00 05/27/21 00:53 05/27/21 03:00 05/27/21 03:00 Laboratory Results WBC 9.70 10^3/uL (4.4-10.8) 05/25/21 12:55 RBC 4.38 10^6/uL (3.93-5.22) 05/25/21 12:55 Hgb 13.0 g/dL (11.2-15.7) 05/25/21 12:55 Hct 39.1 % (36.0-46.0) 05/25/21 12:55 MCV 89.3 fL (80-95) 05/25/21 12:55 MCH 29.7 pg (27.0-33.0) 05/25/21 12:55 MCHC 33.2 % (32.0-36.0) 05/25/21 12:55 RDW 13.8 % (11.7-14.6) 05/25/21 12:55 Plt Count 198 10^3/uL (130-400) 05/25/21 12:55 MPV 10.4 fL (8.0-11.0) 05/25/21 12:55 COVID-19 Source Nasal/Nares 05/25/21 11:00 SARS-CoV-2 (PCR) Negative (Negative) 05/25/21 11:00 Patient ABO/Rh A Positive 05/25/21 12:55 Antibody Screen NEGATIVE 05/25/21 12:55 Subjective Interval history since last seen: Ruth continues to do well. Her epidural is effective. She is feeling some pelvic pressure with contractions. Results Hemoglobin/Hematocrit: Hgb 13.0 g/dL (11.2-15.7) 05/25/21 12:55 Hct 39.1 % (36.0-46.0) 05/25/21 12:55
--- NOTE | 2021-05-27 04:11 | HPE_ITS ---
Date of service: 05/27/21 Time of Service: 04:12 Assessment and Plan Assessment and plan (1) Macrosomia: Status: Acute (2) Encounter for induction of labor: Status: Acute Assessment and plan: Patient is currently 40 W0D EGA who was admitted on 05/25/2021 for cervical ripening and has remained approximately 4 cm dilation for hours despite adequate contractions. presenting part is vertex and while well applied to the cervix there has been no appreciable descent. heart rate demonstrating occasional late decelerations. After discussion with the patient's obstetrical provider and patient and her decision was made to proceed with a unscheduled delivery for arrest of descent and arrest of dilation. She was counseled regarding the risks of infection damage to surrounding structures bleeding that may occur with a delivery. Her questions were answered and informed consent was obtained. The OR crew has been notified. OB-HPI Labor/Delivery History of Present Illness Reason for Visit: DELIVERY Chief Complaint: Scheduled Induction of Labor Indication for Induction: Macrosomia. HUGO Calculator Estimated Delivery Date Method Current WG Current Estimate 05/27/21 LMP (Certain) 40w 0d Other Estimates 05/27/21 Ultrasound #1 40w 0d Review of Systems All systems reviewed & are unremarkable except as noted in HPI and below [facility] Medical History (Updated 05/25/21 @ 16:35 by India Camacho) History of frequent urinary tract infections (10/22/16) History of kidney stones (01/14/17) History of miscarriage 04/2020. Normal female karyotype on D&C specimen. 05/2020 [facility] [place] MFM consult: Perform lupus anticoagulant and anticardiolipin antibodies. Sonohysterogram to evaluate uterine cavity to be performed at [facility] Hypothyroidism, unspecified (10/28/17) Interstitial cystitis Missed 01/2020. ~7w EGA. D&C at 10w 04/27/20. Dx at 7w2d. Procedure 04/29/20. POC: Nl chromosome analysis. Surgical History Breast fibroadenoma Removed 05/27/2019 Dr Mariano Reece Hx of dilation and curettage 01/28/20 Family History Grandmother Thyroid disorder paternal Grandmother Thyroid disorder maternal Maternal Aunt Thyroid disorder paternal Maternal Aunt Thyroid disorder paternal Paternal Grandmother Breast cancer PGM at age 92 with Dx of Breast, Ovarian and Uterine cancer Ovarian cancer Uterine cancer Social History (Updated 04/28/20 @ 14:07 by Edita Emerson MD) Smoking/Tobacco Use Status: Never Smoking risk assessment performed?: Yes Alcohol Intake: never Drug use: Never Substance use type: does not use Household members: spouse and other Details: H-Jabari Number of Children: 0 Education Level: master's degree 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 [employer] Sexually active: Yes Do you feel safe at home: Yes Do you feel safe in your relationship?: Yes Female Reproductive History Menstrual control method: condoms History History 3 Para 0 Hx # Term Pregnancies Multiple births Hx # Pregnancies Ectopic pregnancies AB induced Hx Number of Living Children AB spontaneous 2 Meds Allergies and Home Medications Allergies Allergy/AdvReac Type Severity Reaction Status Date / Time pineapple AdvReac Intermediate RASH Verified 05/25/21 16:02 Home Medications Medication Instructions Recorded Confirmed Type PNV cmb#95-ferrous fumarate-FA 1 ea PO DAILY 10/12/13 05/25/21 History [ Vitamins Tablet] levothyroxine [Synthroid] 75 mcg PO DAILY 05/25/21 05/25/21 History Exam Physical Exam Vital signs: Temp Pulse Resp BP Pulse Ox 98.8 F 98 H 16 127/76 100 05/27/21 03:00 05/27/21 03:00 05/27/21 00:53 05/27/21 03:00 05/27/21 03:00 Vital Signs Reviewed: Yes Constitutional Constitutional: no acute distress (Epidural in place-effective) Detailed Labor and Delivery Exam Dilation: 4 Effacement (%): 75 station: -3 Cervix position: mid Consistency: soft De Leon Score: Cervical Points Exam 0 1 2 3 Dilation Closed 1-2cm 3-4 cm 5-6cm Effacement 0-30% 40-50% 60-70% 80% Consistency Firm Medium Soft Station -3 -2 -1,0 +1,+2 Position Posterior Mid Anterior Amniotic Membrane Status: Ruptured Rupture Method: Artifical Amniotic Fluid: Clear Monitor Mode: External Contraction Frequency(min): 2-3 Contraction Duration(sec): 50-60 Contraction Intensity: Moderate/Strong Fetus A Heart Rate Baseline: 150 Monitor Accelerations: 15 X 15 Monitor Decelerations: Late (Occasional) Variability: Moderate (6-25 BPM) Presentation: Cephalic Categories: Category II Est. Weight: 4500 lb Date of Membrane Rupture: 05/26/21 Time of Membrane Rupture: 16:18 HEENT Exam HEENT Exam: Normal Neck Exam Neck Exam: Normal Chest/Brest/Axilla Exam Chest Exam: Not Done Breast Exam Breast Exam: Not Done Respiratory Exam Respiratory Exam: Normal Cardiovascular Exam Cardiovascular Exam: Normal Abdominal Exam Abdominal Exam: Normal Rectal Exam Rectal Exam: Not Done Exam Exam: Normal Extremities Exam Extremities Exam: Normal Back/Spine/Pelvis Exam Back Exam: Normal Pelvis Adequate: Yes Skin Exam Skin Exam: Normal Neurological Exam Neurological Exam: Normal Psychiatric Exam Psychiatric Exam: Normal Results Results Group Beta Strep: Negative Blood Type: A+ Rubella Status: Immune Varicella Immunity: Not Tested Risk Assessment Risk for Shoulder Dystocia 40 Weeks: POSTIVE FOR: EFW> 4500 gms Increased Risk?: Yes Risk for Pre-Eclampsia Daily Dose ASA Indicated: No Yes, if 2 or more: POSITIVE FOR: Nulliparity and BMI>30 Risks Reviewed Risks Reviewed Upon Admission: Yes
[2021-05-27] MEDS: AZITHROMYCIN 500 MG in Normal Saline 250 ML 250 MG IVPB (04:18)
[2021-05-27] MEDS: Sodium Citrate 30 ML CUP PO (04:18)
[2021-05-27] MEDS: ceFAZolin 2 GM/50 ML BAG IVPB (04:55)
[2021-05-27] MEDS: Ketorolac 30 MG/ML VIAL IVP ×3 (05:50→18:10)
[2021-05-27] MEDS: Bupivacaine LIPOSOME/PF 133 MG/10 ML VIAL IJ (06:18)
[2021-05-27] MEDS: Bupivacaine 0.25% Pres-Free 10 ML VIAL (06:18)
--- NOTE | 2021-05-27 06:35 | PDOC.OPNB_ITS ---
Date of service: 05/27/21 Time of Service: 06:35 Operative Note Operative Note Delivery Method: Unscheduled STAT: No and Primary NTSV>37 Weeks: Yes DATE OF PROCEDURE: 05/27/21 PRE-OP DIAGNOSES: IUP at 40 W0D EGA, induction of labor, arrest of descent, arrest of dilatio POST-OP DIAGNOSES: same PROCEDURE: Low transverse delivery SURGEON: Edita Emerson [employer] Archivist: Raad Blackwood Anesthesia: spinal and epidural Estimated blood loss (mL): 400 Pathology: none sent Complications: None Patient was transported to: floor Patient's condition: stable Indications: 30-year-old G3 now P1 female admitted on 05/25/2021 for IOL at 39-5/7 W EGA. Received misoprostol for cervical ripening and AROM with oxytocin. Maximum dilatation 4 cm, vertex presentation well applied to cervix but no descent into pelvis. Findings: Viable male infant in the OA position with clear amniotic fluid. Weight: 4640gm Apgars:8/9. Normal adnexa bilaterally and uterus. His parents plan to name him Fontanelle. Procedure Description: Patient was taken to the operating room she is placed in dorsal supine position with a leftward tilt and her existing epidural was dosed for anesthesia. After approximately 20 minutes patient still had sensation in the region of her vulva and the decision was made to proceed with final anesthesia. She was placed in the sitting position and spinal anesthesia was administered without difficulty. She was once again placed in the dorsal supine position with a leftward tilt. SCDs and a Morales catheter to gravity drainage were in place. A vaginal prep with Betadine was performed and the patient was prepped and draped in the usual sterile fashion.Surgical timeout was performed. After a adequate level of anesthesia was achieved a Pfannenstiel skin incision was made approximately 2 cm superior to the pubic symphysis using a scalpel and the underlying subcutaneous tissue dissected using Bovie electrocautery to the level of the rectus fascia. The rectus fascia was then nicked in the midline and the fascial incision extended laterally using curved Dias scissors. 2 Candice clamps were applied to the inferior rectus fascia and the rectus fascia was dissected off of the underlying rectus muscles using Bovie electrocautery and blunt technique. A similar technique was carried out on the superior rectus fascia. Rectus muscles were then in the midline and the peritoneum entered bluntly. The peritoneal incision was extended laterally using blunt technique. The vesicle-uterine peritoneum over lower uterine segment was incised with curved Dias scissors and the bladder flap created bluntly. Scalpel was used to incise the lower uterine segment in a transverse fashion. The uterine incision was extended bluntly and the amniotic sac was ruptured with clear amniotic fluid noted. A single gloved hand was placed into the uterine cavity and the head was successfully delivered through the uterine incision followed by the trunk and extremities with the assistance of fundal pressure. The cord was doubly clamped and cut and the infant handed off to the waiting pediatric team. Cord blood was obtained and the placenta was extracted with a combination of fundal massage and gentle cord traction. The uterus was exteriorized cleared of all clots and debris and the uterine incision reapproximated with a running lock suture of 0 Vicryl followed by a second imbricating suture of 0 Vicryl. The incision was made hemostatic with 3 [id number] sutures of 0 Vicryl at the right lateral margin and midline respectively. The uterus was returned to the abdomen and the paracolic gutters cleared of all clots and debris. Uterine incision and the along with the bladder flap and the abdominal wall were all inspected and noted to be hemostatic. Peritoneum was reapproximated with a running suture of 2-0 Vicryl. The rectus fascia was reapproximated with a running suture of 0 Vicryl. space within the subcutaneous tissue closed with a running suture of 2-0 Vicryl. The skin incision was reapproximated with a subcuticular closure of 4-0 Vicryl. Skin incision is and sealed with skin glue. The uterus was massaged for any remain ing clots and debris's. The patient was transported to recovery area in stable condition. All sponge, lap, and needle counts correct x2. [place] Infant Gender: Male weight: 4640 lb
[2021-05-27] MEDS: Prenatal Multivitamin w/CA,FE TAB 1 TAB PO (08:00)
--- NOTE | 2021-05-27 09:35 | W.ANESPOSTOP ---
Postoperative Evaluation Date, Time and Location Date Performed: 05/27/21 Time Performed: 09:35 Patient Location: Obstetrics Vital Signs Most Recent Imported Vital Signs: Most Recent Vital Signs Temp Pulse Resp BP Pulse Ox 36.7 C 74 14 101/66 95 05/27/21 07:30 05/27/21 07:30 05/27/21 07:30 05/27/21 07:30 05/27/21 07:30 Assessment Mental Status: Awake (Alert & Oriented to Patient Baseline) Airway and Respiratory Function: Patent airway with normal (patient baseline) respiratory exam Cardiovascular Function: Hemodynamically Stable Hydration Status: Adequately Hydrated Nausea & Vomiting: No Nausea or Vomiting Pain: Pain is tolerable per patient Peripheral Nerve Block: Patient did not receive a nerve block
[2021-05-27] MEDS: Lactated Ringers 1,000 ML 125 ML IV (11:49)
[2021-05-27] MEDS: Normal Saline Flush 10 ML SYR IVP (18:11)
[2021-05-28] MEDS: Ketorolac 30 MG/ML VIAL IVP (00:14)
[2021-05-28] MEDS: Normal Saline Flush 10 ML SYR IVP (00:14)
[2021-05-28 00:23] VITALS: BP 103/69; PULSE 87; RESP 18; TEMP 36.6; O2SAT 96
[2021-05-28] MEDS: Acetaminophen 325 MG TAB 650 MG PO ×4 (03:37→21:19)
[2021-05-28] MEDS: Ibuprofen 600 MG TAB PO ×3 (06:00→17:54)
[2021-05-28 07:48] VITALS: BP 101/68; PULSE 94; RESP 16; TEMP 36.6; O2SAT 96
[2021-05-28 08:08] LABS: Abs Immature Grans 0.09 10^3/uL (0.0-0.06); Absolute Eosinophil Count 0.11 10^3/uL (0.0-0.7); Absolute Lymphocyte Count 1.64 10^3/uL (1.2-3.4); Absolute Monocyte Count 0.77 10^3/uL (0.1-0.8); Basophils % 0.2; Eosinophils % 0.9; HCT 31.6 % (36.0-46.0); HGB 10.4 g/dL (11.2-15.7); Immature Grans % 0.7; Lymphocytes % 13.4; MCH 30.1 pg (27.0-33.0); MCHC 32.9 % (32.0-36.0); MCV 91.6 fL (80-95); MPV 10.3 fL (8.0-11.0); Monocytes % 6.3; Neutrophils % 78.5; Nucleated RBC 0 %; Platelet Count 172 10^3/uL (130-400); RBC 3.45 10^6/uL (3.93-5.22); RDW-SD 47.1 fL; WBC 12.23 10^3/uL (4.4-10.8)
[2021-05-28 08:09] LABS: Absolute Basophil Count 0.02 10^3/uL (0.0-0.2)
[2021-05-28] MEDS: Docusate Sodium 100 MG CAP PO (08:09)
[2021-05-28] MEDS: HYDROcodone 5/Acetaminophen 325 TAB PO (08:09)
--- NOTE | 2021-05-28 09:51 | W.PM.OBPNV1 ---
Date of service: 05/28/21 Time of Service: 09:51 Assessment and Plan Assessment and plan (1) Status post primary low transverse section: Status: Acute Assessment and plan: Post op day #1. Doing well. Routine care Subjective Subjective Interval history: Doing well. Pain controlled Patient comments: Pain well controlled, Incisional pain, Tolerating diet and Flatus present baby status: Doing well, Nursing well and Strong Bonding Observed feeding status: Exclusively breast feeding Exam Physical Exam Vital signs: Temp Pulse Resp BP Pulse Ox 97.9 F 94 H 16 101/68 96 05/28/21 07:48 05/28/21 07:48 05/28/21 07:48 05/28/21 07:48 05/28/21 07:48 Constitutional Constitutional: no acute distress HEENT Exam HEENT Exam: Normal Neck Exam Neck Exam: Normal Respiratory Exam Respiratory Exam: Normal Cardiovascular Exam Cardiovascular Exam: Normal Abdominal Exam Abdomen: Tender Comments: Soft, good bowel sounds. Incision clean, dry, in tact Fundal Exam Fundus: Below Umbilicus and Firm Extremities Exam Extremity Exam: Normal; negative Calf Tenderness Psychiatric Exam Psychiatric Exam: Normal Results Hemoglobin/Hematocrit: Hgb 10.4 g/dL (11.2-15.7) L D 05/28/21 07:49 Hct 31.6 % (36.0-46.0) L 05/28/21 07:49 Abnormal Lab Findings: Abnormal Labs 05/28/21 07:49 WBC 12.23 H RBC 3.45 L Hgb 10.4 L D Hct 31.6 L Absolute Neutrophils 9.60 H
[2021-05-28 21:21] VITALS: BP 103/68; PULSE 83; RESP 18; TEMP 36.4; O2SAT 97
[2021-05-29] MEDS: Ibuprofen 600 MG TAB PO ×2 (00:04→06:12)
[2021-05-29] MEDS: Acetaminophen 325 MG TAB 650 MG PO ×2 (03:02→09:20)
[2021-05-29 03:03] VITALS: BP 106/70; PULSE 82; RESP 18; TEMP 36.5; O2SAT 97
[2021-05-29 09:00] VITALS: BP 105/70; PULSE 85; TEMP 36.7
[2021-05-29] MEDS: Docusate Sodium 100 MG CAP PO (09:19)
[2021-05-29] MEDS: Prenatal Multivitamin w/CA,FE TAB 1 TAB PO (09:19)
--- NOTE | 2021-05-29 10:54 | OBPPV_ITS ---
Date of service: 05/29/21 Time of Service: 10:54 Assessment and Plan Assessment and plan (1) Status post primary low transverse section: Status: Acute Subjective Subjective Interval history: Patient seen, doing well. Minimal pain. Breast-feeding without difficulty. Anticipating discharge this morning. Follow-up in the office with family practice for the baby in 2 days, family practice for incision check in 2 weeks Patient comments: Incisional pain, Tolerating diet and Flatus present [place] baby status: Doing well, Nursing well and Strong Bonding Observed Exam Physical Exam Vital signs: Temp Pulse Resp BP Pulse Ox 97.7 F 82 18 106/70 97 05/29/21 03:03 05/29/21 03:03 05/29/21 03:03 05/29/21 03:03 05/29/21 03:03 Constitutional Constitutional: no acute distress HEENT Exam HEENT Exam: Normal Neck Exam Neck Exam: Normal Respiratory Exam Respiratory Exam: Normal Cardiovascular Exam Cardiovascular Exam: Normal Abdominal Exam Abdomen: Tender Extremities Exam Extremity Exam: Normal; negative Calf Tenderness and Edema Detailed Neurological Exam Neurological: Present alert and oriented X3 DetailedPsychiatric Exam Psych Exam: Normal Affect, Normal Thougth Process, Cooperative, Good Insight and Good Judgement Results Hemoglobin/Hematocrit: Hgb 10.4 g/dL (11.2-15.7) L D 05/28/21 07:49 Hct 31.6 % (36.0-46.0) L 05/28/21 07:49 Abnormal Lab Findings: Abnormal Labs 05/28/21 07:49 WBC 12.23 H RBC 3.45 L Hgb 10.4 L D Hct 31.6 L Absolute Neutrophils 9.60 H
--- NOTE | 2021-05-29 10:59 | W.PM.OBDISCH ---
Date of service: 05/29/21 Time of Service: 10:59 DS: Diagnosis Discharge Diagnosis (1) Status post primary low transverse section: Status: Acute Discharge Plan Disposition Patient Disposition: HOME Condition: Good Discharge Details Reason For Visit: DELIVERY Admit Date/Time: 05/25/21 10:00 Admit Provider: India Camacho Attending Provider: India Camacho Primary Care Provider: Soo Kaur Hospital Course Hospital Course: Patient was admitted for labor induction. She had a known large for gestational . She had cervical ripening and subsequent spontaneous rupture of membranes. She progressed through course of labor and had a labor arrest. She underwent a primary low transverse section. She had an uncomplicated postoperative course. She did deliver a baby who weighed 10 pounds 4 ounces. She was discharged home postoperative day #2 ambulating, tolerating a regular diet and oral pain medication with stable vital signs. Her follow-up will be in the family practice office in 2 and 6 weeks. Home Meds and New Rx's Prescriptions: New docusate sodium 100 mg capsule 100 mg PO BID PRN PRNQty: 20 RF: 0 ibuprofen [IBU] 800 mg tablet 800 mg PO Q8H PRNQty: 30 RF: 1 Continued PNV cmb#95-ferrous fumarate-FA [] 1 EACH tablet 1 ea PO DAILY RF: 0 levothyroxine [Synthroid] 75 mcg Tablet 75 mcg PO DAILY RF: 0 Discharge Instructions Stand Alone Forms: BC Discharge Instruc Activity:: Activity as Tolerated Equipment/Supplies:: No Equipment Needed Diet:: As Tolerated Discharge Orders Discharge Orders: Discharge Order (Routine); Ordered 05/29/21 Ordered By: Eula aMrin OB:DS Summary Contraception Discussed Contraception Discussed: Yes, Infant Gender-Baby A: Male weight: 10 lb 3.671 oz Status at Discharge Functional status at discharge: independent ambulation Overall status at discharge: patient is progressing back to baseline Mental Status: mental status grossly normal Speech and Movement: speech and movement normal Mood: congruent mood Affect: normal affect Exam Physical Exam Vital signs: Temp Pulse Resp BP Pulse Ox 97.7 F 82 18 106/70 97 05/29/21 03:03 05/29/21 03:03 05/29/21 03:03 05/29/21 03:03 05/29/21 03:03 Constitutional Comments: See physical exam from progress note dated 05/29/2021 [facility] Medical History History of frequent urinary tract infections (10/22/16) History of kidney stones (01/14/17) History of miscarriage 04/2020. Normal female karyotype on D&C specimen. [place] [facility] [place]: Perform lupus anticoagulant and anticardiolipin antibodies. Sonohysterogram to evaluate uterine cavity to be performed at [facility] Hypothyroidism, unspecified (10/28/17) Interstitial cystitis Missed 01/2020. ~7w EGA. D&C at 10w 04/27/20. Dx at 7w2d. Procedure 04/29/20. POC: Nl chromosome analysis. Surgical History Breast fibroadenoma Removed 05/27/2019 Dr Mariano Reece Hx of dilation and curettage 01/28/20 Status post primary low transverse section Family History Grandmother Thyroid disorder paternal Grandmother Thyroid disorder maternal Maternal Aunt Thyroid disorder paternal Maternal Aunt Thyroid disorder paternal Paternal Grandmother Breast cancer PGM at age 92 with Dx of Breast, Ovarian and Uterine cancer Ovarian cancer Uterine cancer Social History Smoking/Tobacco Use Status: Never Smoking risk assessment performed?: Yes Alcohol Intake: never Drug use: Never Substance use type: does not use Household members: spouse and other Details: H-Jabari Number of Children: 0 Education Level: master's degree 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[employer] Sexually active: Yes Do you feel safe at home: Yes Do you feel safe in your relationship?: Yes Female Reproductive History Menstrual control method: condoms History History 3 Para 0 Hx # Term Pregnancies Multiple births Hx # Pregnancies Ectopic pregnancies AB induced Hx Number of Living Children AB spontaneous 2 DS: Data Vitals/I&O Vitals and I&O: Vital Signs Temperature 97.7 F 05/29/21 03:03 Pulse 82 05/29/21 03:03 Pulse Rhythm Regular 05/28/21 21:24 Respiratory Rate 18 05/29/21 03:03 Respiratory Depth Normal 05/27/21 00:00 Blood Pressure 106/70 05/29/21 03:03 Blood Pressure Mean 82 05/29/21 03:03 Pulse Oximetry 97 05/29/21 03:03 Oxygen Delivery Method Room Air 05/25/21 11:27 Oxygen Flow Rate 0 05/25/21 11:27 Pain Level 3 05/29/21 09:20 Intake & Output 05/28/21 05/28/21 05/29/21 11:59 23:59 11:59 Intake Total 5 / 5 Output Total 750 / 750 Balance -745 / -745 Intake: IV 5 / 5 Output: Urine 750 / 750 Other: Urine Color Light Shiela Yellow Urine Appearance Clear Urine Odor Normal Voiding Methods Toilet
== END 2021-05-29 11:25 | disposition home or self-care (01) | DRG 788 ==
PROVIDERS: Obstetrics & Gynecology Gynecology; Admitting Provider Family Medicine; PCP Family Medicine; Visit Provider Family Medicine
PROC: 10D00Z1 Extraction of Products of Conception, Low, Open Approach (ICD-10-PCS; CPT 59514; principal; 2021-05-27 04:50)
DX: O40.3XX0 Polyhydramnios, third trimester, not applicable or unspecified (principal); O99.284 Endocrine, nutritional and metabolic diseases complicating childbirth; Z37.0 Single live birth; E03.9 Hypothyroidism, unspecified; O66.2 Obstructed labor due to unusually large fetus; Z3A.40 40 weeks gestation of pregnancy; O62.1 Secondary uterine inertia; O76 Abnormality in fetal heart rate and rhythm complicating labor and delivery; Z20.822 Contact with and (suspected) exposure to COVID-19
CPT/HCPCS: 59514; 36415; 85027; 86850; 86900; 86901; 87635; 59200; 85025; J0171; J0456; J0690; J1885; J2370; J2405; J3010; J3490

== ENCOUNTER 2022-12-14 03:07 | Emergency (ER) | payer BC, SELFPAY ==
[2022-12-14 03:10] VITALS: BP 120/69; PULSE 88; RESP 18; TEMP 36.4; O2SAT 100
[2022-12-14 03:11] VITALS: O2SAT 100
[2022-12-14 03:12] VITALS: BP 120/69; PULSE 86
[2022-12-14] MEDS: Normal Saline 1,000 ML 1000 ML IV ×2 (03:23→05:15)
[2022-12-14] MEDS: Metoclopramide 10 MG/2 ML VIAL IVP (03:23)
--- NOTE | 2022-12-14 03:23 | ED.GENADUL_ITS ---
Discharge Plan Disposition Patient Disposition: Home Condition: Stable Discharge Details Clinical Impression: Hyperemesis gravidarum Primary Care Provider: Soo Kaur ED Provider: Darrick Arias Home Meds and New Rx's Prescriptions: New ondansetron 4 mg tablet,disintegrating 4 mg PO Q8H PRN (Reason: nausea and vomiting) Qty: 30 0RF Continued PNV cmb#95-ferrous fumarate-FA [] 1 EACH tablet 1 ea PO DAILY levothyroxine [Synthroid] 75 mcg Tablet 75 mcg PO DAILY Discharge Instructions Instructions: Hyperemesis Gravidarum (ED) Additional Instructions: follow up with your obgyn within 1-2 weeks if you feel more ill, have severe pain or persistent vomiting return to the emergency department for reevaluation Medical Decision Making 32 yo who states she is approximately 10 weeks comes in with cc of n/v since yesterday afternoon. She states she has not had this issue in the past with her prior pregnancies. Since about week 6 she has had intermittent nausea but not persistent vomiting like she has now. She denies fevers, chills, severe abdominal pain, vaginal bleeding. She arrives stable, caox4 speaking clearly in no distress. She has a soft nontender abdomen. Suspect hypermesis gravidarum, will check cbc, cmp, ua and treat with iv fluids and metoclopramide. pt feeling improved and is tolerating po, still no abdominal tenderness, bedside u/s shows iup with fhr 150, still pending ua. She still has mild nausea, will also provide zofran Differential Diagnosis Differential Diagnosis: hyperemesis gravidarum, electrolyte abnormality Medical Records Medical records reviewed: Yes I reviewed the patient's medical records. Lab Data Lab results reviewed: Yes I reviewed the patient's lab results. HPI General Mode of arrival: ambulatory . Date/Time Provider Initiated Documentation: 12/14/22 03:08 . Limitations to Documentation: no limitations . Information obtained by: patient . History of Present Illness 32 year old F presents to the emergency department with the chief complaint of n/v, described as moderate, Patient started experiencing this day(s) (1) and it has been constant. No relieving factors improve symptom(s), No exacerbating factors reported . Patient notes denies chest pain and fever/chills. Patient did receive the following treatments prior to arrival, none Related Data Home Medications Medication Instructions Recorded Confirmed vit no.95-ferrous 1 ea PO DAILY 10/12/13 12/14/22 fumarate 28 mg-folic acid 800 mcg tablet () levothyroxine 75 mcg tablet 75 mcg PO DAILY 05/25/21 12/14/22 (Synthroid) ondansetron 4 mg disintegrating 4 mg PO Q8H PRN nausea and 12/14/22 tablet vomiting #30 tabs Previous Rx's Medication Instructions Recorded ondansetron 4 mg disintegrating 4 mg PO Q8H PRN nausea and 12/14/22 tablet vomiting #30 tabs Allergies Allergy/AdvReac Type Severity Reaction Status Date / Time pineapple AdvReac Intermediate RASH Verified 11/01/21 09:56 General Stated Complaint: Nausea/Vomit/Diar URIEL: 3 Review of Systems All systems reviewed & are unremarkable except as noted in HPI and below Constitutional Constitutional: Denies chills, Denies fever(s) and Denies weakness Cardiovascular Cardiovascular: Denies chest pain and Denies dyspnea Respiratory Respiratory: Denies cough and Denies dyspnea Gastrointestinal Gastrointestinal: Denies abdominal pain Genitourinary Genitourinary: Denies dysuria Integumentary/Breasts Skin/Breast: Denies rash Neurologic Neurologic: Denies weakness [facility] All Active Problems (Updated 12/14/22 @ 05:15 by Darrick Arias MD) Hyperemesis gravidarum (Acute) Hypothyroidism, unspecified (Acute 10/28/17) Medical History History of frequent urinary tract infections (10/22/16) History of kidney stones (01/14/17) History of miscarriage 04/2020. Normal female karyotype on D&C specimen. 05/2020 [facility] [place] consult: Perform lupus anticoagulant and anticardiolipin antibodies. Sonohysterogram to evaluate uterine cavity to be performed at [facility] Interstitial cystitis Surgical History Breast fibroadenoma Removed 05/27/2019 Dr Mariano Reece Hx of dilation and curettage 01/28/20 Status post primary low transverse section Family History Grandmother Thyroid disorder paternal Grandmother Thyroid disorder maternal Maternal Aunt Thyroid disorder paternal Maternal Aunt Thyroid disorder paternal Paternal Grandmother Breast cancer PGM at age 92 with Dx of Breast, Ovarian and Uterine cancer Ovarian cancer Uterine cancer Social History Smoking/Tobacco Use Status: Never Smoking risk assessment performed?: Yes Alcohol Intake: never Drug use: Never Substance use type: does not use Household members: spouse and other Details: H-Jabari Number of Children: 0 Education Level: master's degree 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[employer] Sexually active: Yes Do you feel safe at home: Yes Do you feel safe in your relationship?: Yes Female Reproductive History Menstrual control method: condoms History History 3 Para 1 Hx # Term Pregnancies Multiple births Hx # Pregnancies Ectopic pregnancies AB induced Hx Number of Living Children AB spontaneous 2 Exam Const General: no acute distress Orientation: alert HENMT Head: normal to inspection Ears: external ears normal General nose exam: external nose normal Mouth: moist mucous membranes Eyes General: appearance normal, both eyes and all related structures Neck Neck: normal visual inspection Resp Effort & Inspection: normal respiratory effort and able to speak in complete sentences Cardio Rate: regular rate GI Palpation: soft and nontender Skin General skin exam: no rashes or lesions noted Neuro General: patient alert and patient oriented x3 Extrem General: normal to inspection Psych Mental Status: mental status grossly normal Course Vital Signs Vital signs: Vital Signs Temperature 36.4 C 12/14/22 03:10 Pulse 88 12/14/22 03:10 Respiratory Rate 18 12/14/22 03:10 Blood Pressure 120/69 12/14/22 03:10 Pulse Oximetry 100 12/14/22 03:10 Temperature 36.4 C 12/14/22 03:10 Temperature Source Oral 12/14/22 03:10 Pulse 88 12/14/22 03:10 Respiratory Rate 18 12/14/22 03:10 Respiratory Effort Normal 12/14/22 03:15 Blood Pressure 120/69 12/14/22 03:10 Blood Pressure Position Supine 12/14/22 03:10 Pulse Oximetry 100 12/14/22 03:10 Oxygen Delivery Method Room Air 12/14/22 03:10 Oxygen Flow Rate 0 12/14/22 03:10 Pain Level 0 12/14/22 03:10
[2022-12-14 03:31] LABS: Abs Immature Grans 0.05 10^3/uL (0.0-0.06); Absolute Basophil Count 0.02 10^3/uL (0.0-0.2); Absolute Eosinophil Count 0.06 10^3/uL (0.0-0.7); Absolute Lymphocyte Count 0.62 10^3/uL (1.2-3.4); Absolute Monocyte Count 0.45 10^3/uL (0.1-0.8); Absolute Neutrophil Count 10.35 10^3/uL (1.2-6.7); Basophils % 0.2; Eosinophils % 0.5; HCT 39.7 % (36.0-46.0); HGB 13.6 g/dL (11.2-15.7); Immature Grans % 0.4; Lymphocytes % 5.4; MCHC 34.3 % (32.0-36.0); MCV 88 fL (80-95); MPV 9.2 fL (8.0-11.0); Monocytes % 3.9; Neutrophils % 89.6; Platelet Count 306 10^3/uL (130-400); RBC 4.53 10^6/uL (3.93-5.22); RDW 12.4 % (11.7-14.6); RDW-SD 39.8 fL; WBC 11.55 10^3/uL (4.4-10.8)
[2022-12-14 03:51] LABS: ALT 20 U/L (14-59); AST 14 U/L (15-37); Albumin 3.3 g/dL (3.4-5.0); Alkaline Phosphatase 66 U/L (46-116); BUN 11 mg/dL (7-18); Bilirubin, Total 0.5 mg/dL (0.2-1.0); CO2 25.9 mmol/L (21.0-32.0); CREATININE 0.8 mg/dL (0.55-1.02); Calcium 8.6 mg/dL (8.5-10.1); Estimated GFR 99.71 (mL/min/1.73m2); Glucose 106 mg/dL (74-106); Magnesium 1.8 mg/dL (1.8-2.4); Total Protein 7.9 g/dL (6.4-8.2)
[2022-12-14 04:01] LABS: Anion Gap 8.1 mmol/L (3-11); Chloride 100 mmol/L (98-107); Sodium 134 mmol/L (136-145)
[2022-12-14] MEDS: Ondansetron 4 MG/2 ML VIAL IVP (05:39)
[2022-12-14 06:21] LABS: Bilirubin Negative (Negative); Blood Negative (Negative); Clarity Sl Cloudy (Clear); Glucose Negative (Negative); Ketones Negative (Negative); Leukocyte Esterase Negative (Negative); Nitrite Negative (Negative); Specific Gravity 1.025 (1.005-1.025); Urobilinogen 0.2 mg/dL (Up to 0.2)
[2022-12-14 06:34] VITALS: BP 103/65; PULSE 82; O2SAT 100
== END 2022-12-14 07:06 | disposition home or self-care (01) ==
PROVIDERS: Emergency Provider Emergency Medicine; PCP Family Medicine
DX: O21.0 Mild hyperemesis gravidarum (principal); O09.291 Supervision of pregnancy with other poor reproductive or obstetric history, first trimester; Z3A.10 10 weeks gestation of pregnancy
CPT/HCPCS: 36415; 80053; 96361; 96374; 96375; 99284; 81003; 83735; 84702; 85025; J2405; J2765

== ENCOUNTER 2023-07-08 06:00 | Inpatient (IN) | payer BC, SELFPAY ==
[2023-07-08] VITALS (24 sets, daily range): BP systolic 91–121; BP diastolic 53–87; PULSE 66–101; RESP 15–18; TEMP 36.2–36.7; O2SAT 98–100; BMI 41.3
[2023-07-08 06:22] LABS: HCT 36.6 % (36.0-46.0); HGB 12.6 g/dL (11.2-15.7); MCH 29.9 pg (27.0-33.0); MCHC 34.4 % (32.0-36.0); MCV 87 fL (80-95); MPV 9.9 fL (8.0-11.0); Platelet Count 242 10^3/uL (130-400); RBC 4.22 10^6/uL (3.93-5.22); RDW 13.6 % (11.7-14.6); RDW-SD 42.5 fL; WBC 11.27 10^3/uL (4.4-10.8)
[2023-07-08] MEDS: AZITHROMYCIN 500 MG in Normal Saline 250 ML 250 MG IVPB (06:29)
[2023-07-08] MEDS: Lactated Ringers 1,000 ML 200 ML IV ×2 (06:29→08:30)
--- NOTE | 2023-07-08 06:43 | ANES.PREOP_ITS ---
General Info Date of Service Date Performed: 07/08/23 Height: 5 ft 2 in Weight: 102.512 kg Body Mass Index (BMI): 41.3 Surgical Procedure: Operation Date: 07/08/23 07:40 Proposed Procedure Side Surgeon p Repeat Section Edita Emerson MD Meds Allergies and Home Medications Allergies Allergy/AdvReac Type Severity Reaction Status Date / Time pineapple AdvReac Intermediate RASH Verified 07/05/23 15:27 Home Medication Medication Instructions Recorded vit no.95-ferrous 1 ea PO DAILY 10/12/13 fumarate 28 mg-folic acid 800 mcg tablet () levothyroxine 75 mcg tablet 75 mcg PO DAILY 05/25/21 (Synthroid) ondansetron 4 mg disintegrating 4 mg PO Q8H PRN nausea and 12/14/22 tablet vomiting #30 tabs ferrous sulfate 325 mg (65 mg 325 mg PO DAILY 05/21/23 iron) tablet Current Visit Medications: Current Medications Generic Name Dose Route Start Last Admin Trade Name Freq PRN Reason Stop Dose Admin Citric Acid/Sodium Citrate 30 ml 07/08/23 06:00 Sodium Citrate 30 Ml Cup PO 07/08/23 18:00 PREOP MONICA Cefazolin Sodium/Dextrose 2 gm in 50 mls @ 100 mls/hr 07/08/23 06:00 Ancef Duplex IVPB 07/08/23 23:59 PREOP MONICA Azithromycin 500 mg/ Sodium 250 mls @ 250 mls/hr 07/08/23 06:00 07/08/23 06:29 Chloride IVPB 07/08/23 23:59 250 mls/hr PREOP MONICA Administration Ringer's Solution 1,000 mls @ 200 mls/hr 07/08/23 06:30 07/08/23 06:29 IV 07/23/23 23:59 200 mls/hr INFUSION MONICA Administration IV Miscellaneous Supplies 1 each 07/08/23 06:30 Iv Access IV 07/08/23 23:59 DIRECTED MONICA Ondansetron HCl 4 mg 07/08/23 06:42 Ondansetron 4 Mg/2 Ml Vial IVP 07/08/23 06:43 NOW ONE Sodium Chloride 0 ml 07/08/23 09:24 Normal Saline Flush 10 Ml Syr IVP 07/08/23 18:00 PRN PRN PFSH Active Problems Active Problems: Problem Status Onset Code Desires (vaginal after ) trial O34.219 Hx of section Z98.891 Z34.90 Hypothyroidism, unspecified 10/28/17 E03.9 Medical History Medical History History of frequent urinary tract infections (10/22/16) History of kidney stones (01/14/17) History of miscarriage 04/2020. Normal female karyotype on D&C specimen. 05/2020 [facility] [place] consult: Perform lupus anticoagulant and anticardiolipin antibodies. Sonohysterogram to evaluate uterine cavity to be performed at [facility] H Interstitial cystitis Surgical History Surgical History Breast fibroadenoma Removed 05/27/2019 Dr Mariano Reece Hx of dilation and curettage 01/28/20 Status post primary low transverse section Tobacco Smoking/Tobacco Use Status: Never Alcohol Alcohol Intake: never Substance Use Substance use: Never Substance use type: does not use Prental History History 2 3 Para 1 Hx # Term Pregnancies Multiple births Hx # Pregnancies Ectopic pregnancies AB induced Hx Number of Living Children AB spontaneous 2 Vital Signs and Lab Results Vital Signs Most Recent Vital Signs in EMR: Most Recent Vital Signs Pulse Resp BP Pulse Ox 101 H 18 113/87 99 07/08/23 06:03 07/08/23 06:03 07/08/23 06:03 07/08/23 06:03 Lab Results 07/08/23 06:10 Blood Type / Crossmatch: 2 No Data to Display Complete Blood Count: 2 White Blood Count 11.27 10^3/uL (4.4-10.8) H 07/08/23 06:10 Red Blood Count 4.22 10^6/uL (3.93-5.22) 07/08/23 06:10 Hemoglobin 12.6 g/dL (11.2-15.7) 07/08/23 06:10 Hematocrit 36.6 % (36.0-46.0) 07/08/23 06:10 Platelet Count 242 10^3/uL (130-400) 07/08/23 06:10 Complete Metabolic Panel: 2 No Data to Display Liver Function Panel: 2 No Data to Display Coagulation Panel: 2 No Data to Display Cardiac Panel: 2 No Data to Display Arterial Blood Gas: 2 No Data to Display Venous Blood Gas: 2 No Data to Display Pancreas Panel: 2 No Data to Display Thyroid Panel: 2 No Data to Display Infectious Disease: 2 No Data to Display Blood Cultures: 2 No Data to Display Toxicology Panel: 2 No Data to Display Panel: 2 No Data to Display Anesthesia Assessment and Plan Anesthesia History Personal History: No History of Anesthesia Complications Family History: No Family History of Anesthesia Complications Exercise Tolerance Exercise Tolerance: Metabolic Equivalents>4 Cardiac & Pulmonary Exam Cardiac Exam: Normal S1/S2 Heart Sounds Pulmonary Exam: Clear Bilateral Breath Sounds Implantable Cardiac Device Does patient have a Pacemaker or an ICD?: No Airway Exam Known Difficult Airway: No Mallampati Class: 2 Mouth Opening: Normal (> 3cm) Thyromental Distance: Greater than 3 cm Neck Range of Motion: Full ROM Neck Circumference: Normal Teeth Condition: Normal Dentition ASA Classification ASA Score: ASA 2 Emergency Case?: No NPO Status NPO Status: NPO Clears >2 hours, Solids >8 hours Status Status: Confirmed (Full Term) Anesthesia Plan Resuscitation Status: Full Code Anesthesia Technique: Spinal Anesthesia Airway Planned: Natural Airway Monitors Used: Standard Monitors
[2023-07-08] MEDS: ceFAZolin 2 GM/50 ML BAG IVPB (07:43)
[2023-07-08] MEDS: Bupivacaine 0.25% Pres-Free 30 ML VIAL (08:25)
--- NOTE | 2023-07-08 08:50 | W.ANESPOSTOP ---
Postoperative Evaluation Date, Time and Location Date Performed: 07/08/23 Time Performed: 08:50 Patient Location: Obstetrics Vital Signs Most Recent Imported Vital Signs: Most Recent Vital Signs Pulse Resp BP Pulse Ox 101 H 18 113/87 99 07/08/23 06:03 07/08/23 06:03 07/08/23 06:03 07/08/23 06:03 Assessment Mental Status: Awake (Alert & Oriented to Patient Baseline) Airway and Respiratory Function: Patent airway with normal (patient baseline) respiratory exam Cardiovascular Function: Hemodynamically Stable Hydration Status: Adequately Hydrated Nausea & Vomiting: No Nausea or Vomiting Pain: Pt. Denies Any Pain Peripheral Nerve Block: Patient did not receive a nerve block
--- NOTE | 2023-07-08 08:54 | PDOC.OPNB_ITS ---
Date of service: 07/08/23 Time of Service: 08:55 Operative Note Operative Note Delivery Method: Scheduled and Repeat Previous LT Incision: Yes DATE OF PROCEDURE: 07/08/23 PRE-OP DIAGNOSES: IUP @ 39w4d EGA, declined SARAH. POST-OP DIAGNOSES: same PROCEDURE: repeat LTCS SURGEON: Edita Emerson Assisting Surgeon: Bessy Wilcox Anesthesia: spinal Estimated blood loss (mL): 600 Pathology: other (cord blood to lab) Complications: None Patient was transported to: floor Patient's condition: stable Findings: Viable female infant in vertex presentation. Clear amniotic fluid. Weight: 3980 gm Apgars: 8/9/ . Normal uterus ovaries and fallopian tubes. Normal pelvis. Her parents intend to name her Fabienne. Procedure Description: Patient was taken to the operating room she is placed in the sitting position and spinal anesthesia was administered without difficulty.? She was then placed in the dorsal supine position with a leftward tilt.? SCDs? and a Morales catheter to gravity drainage were in place.? A vaginal prep with Betadine was performed and the patient was prepped and draped in the usual sterile fashion. IV antibiotics had been administered. After a adequate level of anesthesia was achieved a Pfannenstiel skin incision was made approximately 2 cm superior to the pubic symphysis using a scalpel and the underlying subcutaneous tissue dissected using Bovie electrocautery to the level of the rectus fascia. The rectus fascia was then nicked in the midline and the fascial incision extended laterally using Bovie electrocautery. 2 Candice clamps were applied to the superior rectus fascia and the rectus fascia was dissected off of the underlying rectus muscles using Bovie electrocautery and blunt technique. A similar technique was carried out on the inferior rectus fascia. Rectus muscles were then in the midline and the peritoneum entered bluntly. The peritoneal incision was extended laterally using blunt technique. The vesicle-uterine peritoneum over lower uterine segment was incised with curved Dias scissors and the bladder flap created bluntly. Scalpel was used to incise the lower uterine segment in a transverse fashion. The uterine incision was extended bluntly and the amniotic sac was ruptured with clear amniotic fluid noted. A single gloved hand was placed into the uterine cavity and the head was successfully delivered through the uterine incision followed by the trunk and extremities with the assistance of fundal pressure. The cord was doubly clamped and cut and the infant handed off to the waiting pediatric team. A segment of umbilical cord was obtained and the placenta was extracted with a combination of fundal massage and gentle cord traction. The uterus was exteriorized cleared of all clots and debris and the uterine incision reapproximated with a running lock suture of 0 Vicryl followed by a second imbricating suture of 0 Vicryl. Uterine incision was noted be hemostatic. The uterus was returned to the abdomen and the paracolic gutters cleared of all clots and debris. Uterine incision and the along with the bladder flap and the abdominal wall were all inspected and noted to be hemostatic. No umbilical cord gases were sent. The rectus fascia was reapproximated with a running suture of 0 Vicryl. space within the subcutaneous tissue closed with a running suture of 2-0 Vicryl. The skin incision was reapproximated with a subcuticular closure of 4-0 Vicryl. Steri strips and a Mepilex dressing was applied. The uterus was massaged for any remaining clots and debris. The patient was transported to recovery area in stable condition. All sponge, lap, and needle counts correct x2. [place] Infant Gender: Female weight: 8 lb 12.39 oz See Nursing Delivery Note for weight and Scores: Pt's plan to name their infant
[2023-07-08] MEDS: Oxytocin/Normal Saline 30 UNIT/500 ML BAG 95 UNITS IV (09:00)
[2023-07-08] MEDS: Lactated Ringers 1,000 ML 120 ML IV (11:04)
[2023-07-08] MEDS: Normal Saline Flush 10 ML SYR IVP (14:15)
[2023-07-08] MEDS: Acetaminophen 325 MG TAB 650 MG PO ×2 (14:15→20:30)
[2023-07-08] MEDS: Ketorolac 30 MG/ML VIAL IVP (14:19)
[2023-07-08] MEDS: Lactated Ringers 1,000 ML 125 ML IV (14:21)
[2023-07-08] MEDS: Docusate Sodium 100 MG CAP PO (20:31)
[2023-07-08] MEDS: Ibuprofen 600 MG TAB PO (23:37)
[2023-07-09] VITALS (9 sets, daily range): BP systolic 100–110; BP diastolic 58–61; PULSE 74–87; RESP 14–16; TEMP 36.4–36.9; O2SAT 96–98
[2023-07-09] MEDS: Acetaminophen 325 MG TAB 650 MG PO ×2 (03:14→08:54)
[2023-07-09] MEDS: Ibuprofen 600 MG TAB PO ×2 (06:19→12:17)
--- NOTE | 2023-07-09 09:07 | DSE_ITS ---
Date of service: 07/09/23 Time of Service: 09:07 DS: Diagnosis Discharge Diagnosis (1) Status post repeat low transverse section: Status: Acute Discharge Plan Disposition Patient Disposition: Home Condition: Good Discharge Details Reason For Visit: Admit Date/Time: 07/08/23 06:00 Admit Provider: Edita Emerson Attending Provider: Edita Emerson Primary Care Provider: Soo Kaur Home Meds and New Rx's Prescriptions: No Action ferrous sulfate 325 mg (65 mg iron) tablet 325 mg PO DAILY Rx Instructions: alternate with 2 tabs every other day PNV cmb#[id number]-ferrous fumarate-FA [] 1 EACH tablet 1 ea PO DAILY levothyroxine [Synthroid] 75 mcg Tablet 75 mcg PO DAILY ondansetron 4 mg tablet,disintegrating 4 mg PO Q8H PRN (Reason: nausea and vomiting) Qty: 30 0RF Discharge Instructions Additional Instructions: [facility] this week. Sorry to take the acetaminophen and the ibuprofen together every 6 hours. Call if you need prescription for Vicodin for additional pain relief. Stand Alone Forms: BC Instructions, BC Discharge Instruc Activity:: Activity as Tolerated Equipment/Supplies:: No Equipment Needed Diet:: As Tolerated Discharge Orders Discharge Orders: Discharge Order (Routine); Ordered 07/09/23 Ordered By: Edita Emerson DS: Summary Time Spent with Patient providing and/or coordinating discharge services: Less than 30 minutes Status at Discharge Functional status at discharge: independent ambulation Overall status at discharge: patient is progressing back to baseline Mental Status: mental status grossly normal Speech and Movement: speech and movement normal Mood: congruent mood Affect: normal affect Exam Psych Mental Status: mental status grossly normal Speech and Movement: speech and movement normal Mood: congruent mood Affect: normal affect DS: Data Vitals/I&O Vitals and I&O: Vital Signs Temperature 97.5 F L 07/09/23 04:08 Temperature Source Oral 07/09/23 04:08 Pulse 74 07/09/23 04:08 Pulse Rhythm Regular 07/08/23 19:34 Respiratory Rate 16 07/09/23 06:22 Blood Pressure 110/58 L 07/09/23 04:08 Blood Pressure Mean 75 07/09/23 04:08 Pulse Oximetry 98 07/09/23 04:08 Oxygen Delivery Method Room Air 07/08/23 06:03 Oxygen Flow Rate 0 07/08/23 06:03 Pain Level 3 07/09/23 08:54 Intake & Output 07/08/23 07/08/23 07/09/23 11:59 23:59 11:59 Intake Total 2300 / 4545.833 2245.833 / 4545.833 Output Total 750 / 1500 750 / 1500 850 / 850 Balance 1550 / 3045.833 1495.833 / 3045.833 -850 / -850 Weight 226 lb Intake: IV 2300 / 4545.833 2245.833 / 4545.833 Output: Urine 150 / 900 750 / 900 850 / 850 Estimated Blood Loss 600 / 600 Other: Urine Color Yellow Yellow Urine Appearance Clear Clear Data Completed and Pending Labs on day of discharge: Labs from last 24 hours 07/09/23 Unknown WBC Pending RBC Pending Hgb Pending Hct Pending MCV Pending MCH Pending MCHC Pending RDW Pending Plt Count Pending MPV Pending PFSH All Active Problems (Updated 05/21/23 @ 08:00 by Eula Greco LPN) Status post repeat low transverse section (Acute) Desires (vaginal after ) trial (Acute) Hx of section (Chronic) (Acute) Hypothyroidism, unspecified (Acute 10/28/17) Medical History History of frequent urinary tract infections (10/22/16) History of kidney stones (01/14/17) History of miscarriage 04/2020. Normal female karyotype on D&C specimen. 05/2020 [facility] [place] consult: Perform lupus anticoagulant and anticardiolipin antibodies. Sonohysterogram to evaluate uterine cavity to be performed at [facility] Interstitial cystitis Surgical History Breast fibroadenoma Removed 05/27/2019 Dr Mariano Reece Hx of dilation and curettage 01/28/20 Status post primary low transverse section Family History Grandmother Thyroid disorder paternal Grandmother Thyroid disorder maternal Maternal Aunt Thyroid disorder paternal Maternal Aunt Thyroid disorder paternal Paternal Grandmother Breast cancer PGM at age 92 with Dx of Breast, Ovarian and Uterine cancer Ovarian cancer Uterine cancer Social History (Updated 06/20/23 @ 20:05 by Edita Emerson MD) Smoking/Tobacco Use Status: Never Smoking risk assessment performed?: Yes Alcohol Intake: never Drug use: Never Substance use type: does not use Household members: spouse, children and other Details: H-[place]. [place]. Housing: house Number of Children: 1 Education Level: master's degree current occupation: [employer] Sexually active: Yes Do you feel safe at home: Yes Do you feel safe in your relationship?: Yes Female Reproductive History Menstrual control method: condoms History History 3 Para 1 Hx # Term Pregnancies Multiple births Hx # Pregnancies Ectopic pregnancies AB induced Hx Number of Living Children AB spontaneous 2 Past Pregnancies Del. Date GA/Weeks # Preg Succ Route Wgt Sex Labor Lgth Anesth esia Location Prov Complic 05/27/21 39 No Yes 10 lb 3.671 oz Male aoc 07/08/23 39 No Yes 8 lb 12.39 oz Female aoc Delivery Date: 05/27/21 Last Updated by: Edita Emerson MD Arrest of descent. Max dilation 4cm. '[place]' Delivery Date: 07/08/23 Last Updated by: Edita Emerson MD scheduled elective repeat. Fabienne Time Spent with Patient Time Spent with Patient: <45 minutes Time was spent: preparing to see the patient(eg.review tests), ordering medications,tests, procedures and counseling the patient
[2023-07-09 09:21] LABS: HCT 32.2 % (36.0-46.0); HGB 10.9 g/dL (11.2-15.7); MCH 30.4 pg (27.0-33.0); MCHC 33.9 % (32.0-36.0); MCV 90 fL (80-95); MPV 9.8 fL (8.0-11.0); Platelet Count 229 10^3/uL (130-400); RBC 3.58 10^6/uL (3.93-5.22); RDW-SD 45.8 fL; WBC 14.22 10^3/uL (4.4-10.8)
== END 2023-07-09 13:10 | disposition home or self-care (01) | DRG 788 ==
PROVIDERS: Admitting Provider Obstetrics & Gynecology Gynecology; PCP Family Medicine; Visit Provider Obstetrics & Gynecology Gynecology
PROC: 10D00Z1 Extraction of Products of Conception, Low, Open Approach (ICD-10-PCS; CPT 59514; principal; 2023-07-08 07:30)
DX: O34.211 Maternal care for low transverse scar from previous cesarean delivery (principal); Z37.0 Single live birth; Z3A.39 39 weeks gestation of pregnancy; O99.284 Endocrine, nutritional and metabolic diseases complicating childbirth; E03.9 Hypothyroidism, unspecified; Z87.442 Personal history of urinary calculi; Z87.440 Personal history of urinary (tract) infections; N85.8 Other specified noninflammatory disorders of uterus
CPT/HCPCS: 59514; 00123; 36415; 85027; 86850; 86900; 86901; J0131; J0456; J0690; J1100; J1885; J2405; J3010

== ENCOUNTER → 2024-04-22 01:12 | Outpatient (CLI) | payer BC, SELFPAY ==
--- NOTE | 2024-04-22 | DI.NM_ITS ---
Exam(s) NM HEPATOBILIARY CCK GRP EXAM: NM HEPATOBILIARY CCK GRP CLINICAL HISTORY: RUQ ABD PAIN R10.11. TECHNIQUE: Injected dose: 5 mCi Tc-99 mebrofenin Initial dynamic images: 60 minutes Post-Gallbladder fillin.02 mcg/kg CCK intravenously over a 30min infusion. Additional images: 30 minute dynamic during CCK administration. COMPARISON: US US ABDOMEN LIMITED from 03/30/2024 FINDINGS: Normal hepatic transit time. Prompt excretion into the small bowel. Prompt excretion into the gallbladder. Gallbladder ejection fraction: 22 percent, below the normal range. Patient experienced abdominal huan n with CCK infusion. IMPRESSION: Low gallbladder ejection fraction of 22 percent. SNM guidelines: Gallbladder visualization should be present by 3 hours. Delayed iyrblwl-hn-faqop mart sit beyond 60 min raises the suspicion for partial common bile duct (CBD) obstruction. Gallbladder ejection fraction <35% has a good correlation with acalculous disease (i.e., chronic acal culous cholecystitis, cystic duct syndrome, sphincter of Oddi disease).
[2024-04-22] MEDS: Sincalide 5 MCG VIAL 1.4 MCG IJ (11:53)
[2024-04-22] MEDS: Water,Injection,Sterile 10 ML VIAL IJ (11:55)
== END ==
PROVIDERS: PCP Family Medicine; Visit Provider Family Medicine
DX: R10.11 Right upper quadrant pain (principal)
CPT/HCPCS: 78227; J2805

== ENCOUNTER 2024-05-27 06:14 | Day surgery (SDC) | payer BC, SELFPAY ==
--- NOTE | 2024-05-26 14:46 | W.PM.DSUDISC ---
Date of service: 05/27/24 Time of Service: 08:28 Discharge Plan Disposition Patient Disposition: Home Condition: Good Discharge Details Reason For Visit: Cholecystectomy Attending Provider: Thang Cortez Primary Care Provider: Soo Kaur Home Meds and New Rx's Prescriptions: New tramadol 50 mg tablet 50 mg PO Q8H PRNQty: 12 0RF Rx Instructions: Take 1 tablet by mouth up to every 8 hours if needed for more severe pain. Continued levothyroxine [Synthroid] 75 mcg tablet 50 mcg PO DAILY multivitamin Tablet 1 tab PO DAILY Discharge Instructions Instructions: Cholecystectomy (DC) Additional Instructions: Ruth, we were able to remove your gallbladder today just as we discussed. Everything went very smoothly. I hope this provides some relief to your discomfort. We used a fair amount of numbing medication over the incision sites, but expect them to be sore as the medication wears off. I have provided a prescription for some tramadol if you need it, but if Tylenol and ibuprofen are not enough to control the discomfort, then do not worry about the prescription. Expect to have some bruising over the incision sites in the days to come. That is extremely common. I would like to know, however, if the incisions turn bright red, or if there is any drainage from them that looks like pus. I would not expect that to happen. You should be up and moving around a little bit more more each day. Keep the lifting less than a gallon of milk until we see each other in the office. If you have any questions at all, please do not hesitate to call, otherwise I look forward to seeing you at your postop visit 1. Resume all of your regular medications. 2. Alternate heating pads and ice packs over the incisions if needed for pain 3. Alternate gghy-ucx-ninxftg Tylenol and ibuprofen every 6 hours for the first 2 days, then use as needed. Use the prescription for [] if needed for more severe pain. 4. Leave bandage in place for 24 hours, then remove. 5. Shower with warm soapy water. Pat dry. Use a bandaid if needed to protect your clothing. 6. No soaking or tub baths until I see you in the office. 7. No heavy lifting until I see you in the office. 8. Call the office (or go directly to the emergency room after hours) if you notice any of the following: Develop chills (warm to touch), or if you have a thermometer and your temperature is above 101 Difficulty breathing or difficultly swallowing Persistent vomiting Any bleeding ? exceeding one tablespoon 9. Call your physician if the site where your intravenous was started becomes red, swollen, painful, and warm to touch. Activity:: No heavy lifting Remove Dressings/Wound Care:: 24 hours Shower/Bathe:: 24 hours Diet:: As Tolerated Discharge Orders Discharge Orders: Discharge Order (Routine); Ordered 05/26/24 Ordered By: Thang Cortez DS: Diagnosis Discharge Diagnosis (1) Biliary dyskinesia: Status: Acute Asessment and Plan: Postoperative follow-up in the office
--- NOTE | 2024-05-26 14:48 | ROE_ITS ---
Date of service: 05/27/24 Time of Service: 08:27 Operative Note Operative Note DATE OF PROCEDURE: 05/27/24 PRE-OP DIAGNOSIS: Biliary dyskinesia POST-OP DIAGNOSIS: same PROCEDURE: Laparoscopic cholecystectomy SURGEON: Thang Cortez COMMERCIAL ESTIMATOR: Catrachita Owens ANESTHESIA TYPE: General LMA/ETT Refer to Anesthesia Record ESTIMATED BLOOD LOSS: 25 PATHOLOGY: other (Gallbladder) COMPLICATIONS: None Patient was transported to: PACU Patient's condition: stable Indications: Ruth is a 33-year-old woman with biliary dyskinesia causing a significant amount of right upper quadrant pain and abdominal discomfort. Procedure Description: After satisfactory induction of general anesthesia, I prepped and draped the abdomen in usual fashion. Next, I began with a periumbilical incision. I dissected down to the fascia and elevated it with Candice clamps. I incised it sharply. Next, I passed a 12 mm operating port in the umbilical site. I secured it to the fascia with 0 Vicryl stitches. I then insufflated the peritoneal cavity. Next I inserted a 5 mm 30 degree scope and examined the underlying viscera. There was no evidence of injury created upon entry. I then placed the patient in some reverse Trendelenburg and left side down positioning. Then, with the assistance of the laparoscope, I used local anesthetic to anesthetize the midepigastric and 2 right upper quadrant port sites. Under the vision of the laparoscope, I passed 3 more 5 mm ports. I then grasped the gall bladder fundus and elevated cephalad. I began by dissecting the gallbladder infundibulum. With the assistance of ICG green visualization, I worked in a lateral to medial fashion. Once I skeletonized the cystic duct and cystic artery, with a satisfactory critical view of safety, I doubly clipped and divided them. I then used electrocautery to dissect the gallbladder off the gallbladder fossa. I passed the gallbladder into an Endo Catch bag and removed it by way of the umbilical site. I examined the surgical field. It was hemostatic. I then removed the 5 mm ports under the vision of the laparoscope. Finally, I removed the umbilical port site and closed the fascia with Vicryl stitches. Sites were irrigated, and the skin was closed with subcuticular stitches. Bandages were applied, patient was awakened from anesthesia, and transferred to the recovery unit.
--- NOTE | 2024-05-26 19:06 | W.ANESPRE ---
General Info Date of Service Date Performed: 05/27/24 Height: 5 ft 2 in Weight: 86.183 kg Body Mass Index (BMI): 34.7 Surgical Procedure: Operation Date: 05/27/24 07:40 Proposed Procedure Side Surgeon p Cholecystectomy Laparoscopic Thang Cortez MD Meds Allergies and Home Medications Allergies Allergy/AdvReac Type Severity Reaction Status Date / Time zolpidem (From Ambien) Allergy Severe vomiting, Verified 05/27/24 06:22 black out pineapple AdvReac Intermediate RASH Verified 05/27/24 06:22 Home Medication ?Medication ?Instructions ?Recorded levothyroxine 75 mcg tablet 50 mcg PO DAILY 04/24/24 (Synthroid) multivitamin 1 tab PO DAILY 04/24/24 Current Visit Medications: Current Medications Generic Name Dose Route Start Last Admin Trade Name Freq PRN Reason Stop Dose Admin Acetaminophen 1,000 mg 05/27/24 06:00 Acetaminophen 500 Mg Tab PO 05/27/24 23:59 PREOP MONICA Celecoxib 200 mg 05/27/24 06:00 Celecoxib 200 Mg Cap PO 05/27/24 23:59 PREOP MONICA Gabapentin 600 mg 05/27/24 06:00 Gabapentin 300 Mg Cap PO 05/27/24 23:59 PREOP MONICA Hydromorphone HCl 0.2 mg 05/26/24 14:49 Hydromorphone 2 Mg/Ml Syr IVP 06/25/24 14:48 Q1H PRN PRN Ringer's Solution 1,000 mls @ 80 mls/hr 05/27/24 06:00 IV 05/27/24 23:59 INFUSION MONICA Cefazolin Sodium/Dextrose 2 gm in 50 mls @ 100 mls/hr 05/27/24 06:00 Ancef Duplex IVPB 05/27/24 23:59 PREOP MONICA IV Miscellaneous Supplies 1 each 05/27/24 06:00 Iv Access IV 05/27/24 23:59 DIRECTED MONICA Indocyanine Green 5 mg 05/27/24 06:00 Indocyanine Green 25 Mg Vial IVP 05/27/24 23:59 DIRECTED MONICA Sodium Chloride 0 ml 05/27/24 06:00 Normal Saline Flush 10 Ml Syr IV 05/27/24 23:59 PRN PRN Sodium Chloride 0 ml 05/27/24 06:00 Normal Saline 10 Ml Vial IJ 05/27/24 23:59 DIRECTED PRN Sterile Water 0 ml 05/27/24 06:00 Water,Injection,Sterile 10 Ml Vial IJ 05/27/24 23:59 DIRECTED PRN PFSH Active Problems Active Problems: Problem Status Onset Code Biliary dyskinesia Acute K82.8 Preop examination Acute Z01.818 Status post repeat low transverse section Acute Z98.891 Desires (vaginal after ) trial Acute O34.219 Hx of section Chronic Z98.891 Acute Z34.90 Hypothyroidism, unspecified Acute 10/28/17 E03.9 Medical History Medical History Nephrolithiasis History of miscarriage 04/2020. Normal female karyotype on D&C specimen. 05/2020 [facility] [place] consult: Perform lupus anticoagulant and anticardiolipin antibodies. Sonohysterogram to evaluate uterine cavity to be performed at [facility] Interstitial cystitis History of kidney stones (01/14/17) History of frequent urinary tract infections (10/22/16) Surgical History Surgical History Status post primary low transverse section Hx of dilation and curettage 01/28/20 x2 Breast fibroadenoma Removed 05/27/2019 Dr Mariano Reece (R) Tobacco Smoking/Tobacco Use Status: Never Alcohol Alcohol Intake: never Substance Use Substance use: Never Substance use type: does not use Prental History History 3 Para 2 Hx # Term Pregnancies Multiple births Hx # Pregnancies Ectopic pregnancies AB induced Hx Number of Living Children 2 AB spontaneous 2 Past Pregnancies Del. Date GA/Weeks # Preg Succ Route Wgt Sex Labor Lgth Anesthesia Location Prov Complic 05/27/21 39 No Yes 4640 g Male aoc 07/08/23 39 No Yes 3980 g Female aoc Delivery Date: 05/27/21 Last Updated by: Edita Emerson MD Arrest of descent. Max dilation 4cm. '[place]' Delivery Date: 07/08/23 Last Updated by: Edita Emerson MD scheduled elective repeat. Fabienne Vital Signs and Lab Results Vital Signs Most Recent Vital Signs in EMR: Temp Pulse Resp BP Pulse Ox 36.6 C 64 16 110/71 98 05/27/24 06:41 05/27/24 06:41 05/27/24 06:41 05/27/24 06:41 05/27/24 06:41 Lab Results Blood Type / Crossmatch: No Data to Display Complete Blood Count: No Data to Display Complete Metabolic Panel: No Data to Display Liver Function Panel: No Data to Display Coagulation Panel: No Data to Display Cardiac Panel: No Data to Display Arterial Blood Gas: No Data to Display Venous Blood Gas: No Data to Display Pancreas Panel: No Data to Display Thyroid Panel: No Data to Display Infectious Disease: No Data to Display Blood Cultures: No Data to Display Toxicology Panel: No Data to Display Panel: No Data to Display Anesthesia Assessment and Plan Anesthesia History Personal History: No History of Anesthesia Complications Family History: No Family History of Anesthesia Complications Exercise Tolerance Exercise Tolerance: Metabolic Equivalents>4 Cardiac & Pulmonary Exam Cardiac Exam: Normal S1/S2 Heart Sounds Pulmonary Exam: Clear Bilateral Breath Sounds Implantable Cardiac Device Does patient have a Pacemaker or an ICD?: No Airway Exam Known Difficult Airway: No Mallampati Class: 2 Mouth Opening: Normal (> 3cm) Thyromental Distance: Greater than 3 cm Neck Range of Motion: Full ROM Neck Circumference: Normal Teeth Condition: Normal Dentition ASA Classification ASA Score: ASA 2 Emergency Case?: No NPO Status NPO Status: NPO Clears >2 hours, Solids >8 hours Status Status: Negative HCG Anesthesia Plan Resuscitation Status: Full Code Anesthesia Technique: General Anesthesia Airway Planned: Endotracheal Tube Monitors Used: Standard Monitors Preoperative Comments:: 33 yo female for lap ander Sig PMHx: hypothyroid (levothyroxine), never smoker/EtOH. Previous Anes: no airways on file - c section x 2, spinal, no issues. - d/c, prop, natural airway, no issues.
[2024-05-27] VITALS (50 sets, daily range): BP systolic 98–140; BP diastolic 42–86; PULSE 44–87; RESP 10–22; TEMP 36.3–36.7; O2SAT 98–100; BMI 34.7
[2024-05-27] MEDS: Lactated Ringers 1,000 ML 80 ML IV (06:45)
[2024-05-27] MEDS: Gabapentin 300 MG CAP 600 MG PO (06:45)
[2024-05-27] MEDS: Acetaminophen 500 MG TAB 1000 MG PO (06:45)
[2024-05-27] MEDS: Celecoxib 200 MG CAP PO (06:46)
[2024-05-27] MEDS: Indocyanine green 25 MG VIAL 5 MG IVP (06:46)
[2024-05-27] MEDS: ceFAZolin 2 GM/50 ML BAG IVPB (07:30)
[2024-05-27] MEDS: Bupivacaine 0.25% Pres-Free W/EPI 30 ML VIAL (08:01)
--- NOTE | 2024-05-27 08:18 | GB_PTH ---
PATIENT: Ruth Garcia LOC: [facility] U#:[id number] AGE/SX: 33/F ROOM: RE05/27/[address]: Thang Cortez MD : 1990 BED: DIS: 05/27/2024 SPEC #: [id number] RECD: 05/27/24 12:51 STATUS: MARCI RE #: [id number] FABIO: 05/27/24 08:[address]: Thang Cortez DEPT: Surgical Specimen RECD BY: Lelo Morejon ENTERED: 05/27/24 12:51 SP TYPE: GB OTHR DR: Soo Kaur Tissues: 1 - GALLBLADDER Procedures: GROSS AND MICRO LEVEL 3 Comments: [id number]
--- NOTE | 2024-05-27 08:56 | W.ANESPOSTOP ---
Postoperative Evaluation Date, Time and Location Date Performed: 05/27/24 Time Performed: 08:56 Patient Location: PACU Vital Signs Most Recent Imported Vital Signs: Most Recent Vital Signs Temp Pulse Resp BP Pulse Ox 36.7 C 81 19 110/60 98 05/27/24 08:46 05/27/24 08:46 05/27/24 08:46 05/27/24 08:46 05/27/24 08:45 Pain Score Most Recent Pain Score: Most Recent Pain Score Pain Level 0 05/27/24 06:41 Assessment Mental Status: Arousable with meaningful communication Airway and Respiratory Function: Patent airway with normal (patient baseline) respiratory exam Cardiovascular Function: Hemodynamically Stable Hydration Status: Adequately Hydrated Nausea & Vomiting: Active Nausea or Vomiting Present Nausea and Vomiting Management: Nausea and vomiting active, being addressed with medication Pain: Pain is tolerable per patient (cramping. ) Peripheral Nerve Block: Patient did not receive a nerve block
[2024-05-27] MEDS: Droperidol 5 MG/2 ML VIAL 0.625 MG IVP ×2 (08:59→09:14)
[2024-05-27] MEDS: Normal Saline 10 ML VIAL IJ (08:59)
[2024-05-27] MEDS: Ondansetron 4 MG/2 ML VIAL IVP (09:38)
== END 2024-05-27 11:31 | disposition home or self-care (01) ==
LOC: SUR 06:14
PROVIDERS: PCP Family Medicine; Visit Provider Surgery
PROC: 0FT44ZZ Resection of Gallbladder, Percutaneous Endoscopic Approach (ICD-10-PCS; CPT 47562; principal; 2024-05-27 07:30)
DX: K82.8 Other specified diseases of gallbladder (principal)
CPT/HCPCS: 47562; 81025; 88304; J0690; J1100; J1790; J1885; J2250; J2405; J2704; J3475